=== PATIENT | female | born 1955 | race Caucasian/White ===

== ENCOUNTER 2019-01-03 17:43 | Inpatient (IN) ==
[2019-01-03] MEDS ORDERED: Artificial Tears SOLN 15 ML BOTTLE BOTH EYES PRN (20:07)
[2019-01-03] MEDS ORDERED: Naloxone 0.4 MG/ML INJ IVP PRN (20:07)
--- NOTE | 2019-01-03 20:07 | Internal Med History&Physical ---
<Parker Renteria Rayna - Last Filed: 01/04/19 04:50> Date of Encounter: 01/04/19 Time of Encounter: 20:07 Internal Medicine - H&P: [facility] Chief complaint: shortness of breath History of present illness: Ms. Beltran is a 63 year old female with past medical history of hypertension, hyperlipidemia, type 2 diabetes, COPD, CHF, and sleep apnea. She initially presented to [facility] on 01/03/19. She arrived to that facility via EMS with complaints of shortness of breath. Of note patient was recently discharged from [facility] on 12/29/18 after admission for similar complaints. Patient reported to the [facility] providers that she started smoking again and began having increasing shortness of breath. It was reported her O2 sat was 60% on room air when EMS arrived. She received Zofran, morphine, nitroglycerin, and Lasix in route to the [facility] emergency department. It was reported that she denied any fever, chills, dizziness, lightheadedness, chest pain, abdominal pain, nausea, vomiting. She was placed on BiPAP while at [facility]. She reportedly requested not to be transferred to [facility] because they "did not treat her well". Workup at [facility] ED was significant for elevated blood glucose of 300, BNP of 425, leukocytosis of 13.1, hemoglobin of 8.7, and carbon dioxide from BMP at 41. An ABG was subsequently obtained which showed respiratory acidosis with pH of 7.24, PCO2 of 99.9, PO2 of 71, and bicarbonate of 40.9. With those results the ED provider discussed intubation with this patient. The patient agreed for elective intubation for acute on chronic respiratory failure with hypercapnia. Patient was sedated with propofol. After intubation a repeat ABG was obtained. PH of 7.3, PCO2 of 84.9, PO2 of 185, and bicarbonate of 40. On arrival at our facility the patient remains intubated and sedated on propofol. Breath sounds were reported to be significant for wheezes and rales by EMS prior to arrival. Internal Medicine - H&P: Meds Allergy/AdvReac Type Severity Reaction Status Date / Time No Known Allergies Allergy Verified 01/03/19 20:05 ROS unobtainable: due to endotracheal tube, due to mental status All Systems PM: A 10-system review of systems was performed and is negative for pertinent findings except as documented above in the HPI. - Constitutional General appearance: Present: no acute distress Exam: Constitutional: Obese appearing female in no acute distress, sedated and intubated Head: Normocephalic, atraumatic Eyes: PERRL, EOMI, conjunctiva pink, sclera anicteric Neck: trachea midline Lungs: Clear to auscultation bilaterally. Crackles appreciated in bilateral bases. Nonlabored breathing with mechanical ventilation. No wheezes or rhonchi noted. Cardiac: RRR. +s1 +s2 No murmurs, clicks, or rubs noted. GI: Abdomen soft, nontender, nondistended. Extremities: Warm, radial pulses palpable and symmetrical. No cyanosis or calf tenderness. Trace pitting edema of the left LE Neuro: Sedated and intubated. Unable to assess Skin: Warm, dry, and intact. Internal Med - H&P Results - Labs CBC & Chem 7: 01/04/19 02:21 01/04/19 02:21 - Assessment and Plan (1) Acute and chronic respiratory failure with hypercapnia Current Visit: Yes Status: Acute Assessment and plan: Likely secondary to COPD exacerbation from continued tobacco abuse Continue intubation and sedation at this time with propofol and fentanyl. GI prophylaxis with 40 mg Protonix daily. We will continue BID Symbicort as patient takes this at home Scheduled DuoNeb every 6 hours We will start systemic glucocorticoid therapy with Solu-Medrol 40 mg IV every 6 hours We will also start the patient on IV azithromycin at this time as patient was recently admitted at [facility], however suspicion for pneumonia is low as patient had not been complaining of any fever, chills, or increased sputum production. (2) COPD exacerbation Current Visit: Yes Status: Acute Assessment and plan: Likely related related to continued tobacco abuse. Plan as above (3) CHF (congestive heart failure) Current Visit: Yes Status: Chronic Assessment and plan: Suspect respiratory failure is more important due to COPD exacerbation versus CHF exacerbation. Will continue 40 mg IV Lasix daily at this time. Strict I's and O's. Qualifiers: Heart failure type: unspecified Heart failure chronicity: chronic Qualified Code(s): I50.9 - Heart failure, unspecified (4) Diabetes mellitus Current Visit: Yes Status: Chronic Assessment and plan: Patient's home regimen consists of 35 units Lantus Solostar BID and sliding scale NovoLog 3 times a day As patient is NPO, we will obtain Accu-Cheks every 6 hours, and start the patient on high-dose sliding scale every 6 hours Qualifiers: Diabetes mellitus type: type 2 Diabetes mellitus middle or intermediate school principal insulin use: with usp use Diabetes mellitus complication status: without complication Qualified Code(s): E11.9 - Type 2 diabetes mellitus without complications; Z79.4 - termite exterminator helper (current) use of insulin (5) HTN (hypertension) Current Visit: Yes Status: Chronic Assessment and plan: Patient takes lisinopril 5 mg daily, and metoprolol tartrate 25 mg daily. We will hold these medications at this time and continue to monitor. Qualifiers: Hypertension type: unspecified Qualified Code(s): I10 - Essential (primary) hypertension (6) HLD (hyperlipidemia) Current Visit: Yes Status: Chronic Assessment and plan: Hold home atorvastatin 40 mg at this time as patient is NPO and intubated Qualifiers: Hyperlipidemia type: unspecified Qualified Code(s): E78.5 - Hyperlipidemia, unspecified (7) DVT prophylaxis Current Visit: Yes Status: Acute Assessment and plan: EPCDs (8) Sleep apnea Current Visit: Yes Status: Chronic Qualifiers: Sleep apnea type: unspecified type Qualified Code(s): G47.30 - Sleep apnea, unspecified - Time Spent With Patient Total time spent is greater than 50% in coordination of care (as documented) at patient's floor/unit and/or counseling patient: <Milton Nesbitt - Last Filed: 01/04/19 08:02> Date of Encounter: 01/03/19 Internal Medicine - H&P: HPI History of present illness: Ms. Beltran is a 63 year old female All Systems PM: A 10-system review of systems was performed and is negative for pertinent findings except as documented above in the HPI. - Constitutional Vitals: Temp Pulse Resp BP Pulse Ox 97.6 F 91 14 103/59 97 01/04/19 03:00 01/04/19 07:00 01/04/19 07:30 01/04/19 07:00 01/04/19 07:30 Internal Med - H&P Results - Labs CBC & Chem 7: 01/04/19 02:21 01/04/19 02:21 Labs: Short CBC 01/03/19 01/04/19 Range/Units 20:39 02:21 WBC 11.8 H 12.2 H (4.3-11.1) K/mcL Hgb 8.8 L 8.2 L (11.5-15.4) g/dL Hct 32.2 L 29.7 L (35.3-44.9) % Plt Count 361 339 (140-400) K/mcL Neutrophils # 11.2 H 10.9 H (1.6-8.9) K/mcL BMP 01/03/19 01/04/19 20:39 02:21 Sodium 139 138 Potassium 4.9 3.7 Chloride 94 L 94 L Carbon Dioxide 37 H 37 H BUN 22 21 Creatinine 0.78 0.60 Glucose 338 H 246 H Calcium 9.1 8.8 Liver Function 01/04/19 Range/Units 02:21 Total Bilirubin 0.5 (0.3-1.0) mg/dL AST 15 (13-39) Units/L ALT 21 (7-52) Units/L Alkaline Phosphatase 96 (34-104) Units/L Albumin 3.3 L (3.5-5.7) g/dL - ABG Interpretation ABG results: 01/03/19 01/04/19 20:57 04:53 ABG pH 7.47 H 7.58 H ABG pCO2 55 H 42 ABG pO2 64 L 55 L ABG HCO3 40 H 40 H ABG Total CO2 42 H 41 H ABG O2 Saturation 93 L 92 L ABG Base Excess 14 H 16 H - Impressions ITS Impressions Chest X-Ray 01/04/19 07:39 IMPRESSION: 1. Dense retrocardiac opacity with moderate pleural effusion may represent infection or atelectasis. 2. Ground-glass and reticular opacities throughout the lungs suggestive of pulmonary edema. Atypical infection could have a similar appearance. 3. Cardiomegaly. 4. Lines and tubes appear in appropriate position. D/ / Sima Pinon MD / Sima Pinon MD Interpreting Provider: Sima Pinon MD - Assessment and Plan (1) Acute and chronic respiratory failure with hypercapnia Current Visit: Yes Status: Acute (2) COPD exacerbation Current Visit: Yes Status: Acute (3) CHF (congestive heart failure) Current Visit: Yes Status: Chronic Qualifiers: Heart failure type: unspecified Heart failure chronicity: chronic Qualified Code(s): I50.9 - Heart failure, unspecified (4) DVT prophylaxis Current Visit: Yes Status: Acute (5) HTN (hypertension) Current Visit: Yes Status: Chronic Qualifiers: Hypertension type: unspecified Qualified Code(s): I10 - Essential (primary) hypertension (6) HLD (hyperlipidemia) Current Visit: Yes Status: Chronic Qualifiers: Hyperlipidemia type: unspecified Qualified Code(s): E78.5 - Hyperlipidemia, unspecified (7) Diabetes mellitus Current Visit: Yes Status: Chronic Qualifiers: Diabetes mellitus type: type 2 Diabetes mellitus usp insulin use: with middle or intermediate school principal use Diabetes mellitus complication status: without complication Qualified Code(s): E11.9 - Type 2 diabetes mellitus without complications; Z79.4 - termite exterminator helper (current) use of insulin (8) Sleep apnea Current Visit: Yes Status: Chronic Qualifiers: Sleep apnea type: unspecified type Qualified Code(s): G47.30 - Sleep apnea, unspecified - Time Spent With Patient Total time spent is greater than 50% in coordination of care (as documented) at patient's floor/unit and/or counseling patient: - Attending Attestation I saw and evaluated the patient. I reviewed the residents note, performed my own physical examination and agree with findings and plan as documented in the residents note. Patient seen and examined on 01/03/19. Patient presented initially to [facility] ER with shortness of breath. She is a chronic smoker. She was intubated and transferred here for further management. Will will continue ICU cares, continue vent. She also has xarelto on her medication list, however review of her documentation she may have developed a bleed while on this medicine. Unclear if she is still on it or not. We will hold it for now, SCDs for DVT prophylaxis. Continue to monitor.
[2019-01-03] MEDS ORDERED: D5% in Water 1,000 ML IVC PRN (20:24)
[2019-01-03] MEDS ORDERED: Dextrose Gel 15 GM/37.5 ML TUBE PO PRN ×2 (20:24)
[2019-01-03] MEDS: FentaNYL (PF) 1,000 MCG in 0.9 % Sodium Chloride 80 ML IVC SCH (20:46)
[2019-01-03 20:51] LABS: Hemoglobin 8.8 g/dL (11.5-15.4); Mean Platelet Volume 10.6 fL (9.4-12.4); Monocytes % 1.2 %; Nucleated Red Blood Cells 0.2 /100 WBC (0); Red Cell Distribution Width 18.6 % (11.5-14.5)
[2019-01-03 20:53] LABS: Basophils % 0.1 %; Eosinophils % 0.1 %; Hematocrit 32.2 % (35.3-44.9); Immature Granulocytes % 0.4 % (0-4); Lymphocytes # 0.4 K/mcL (0.6-4.6); Lymphocytes % 3.2 %; Mean Corpuscular HGB Conc 27.3 g/dL (31.6-35.5); Mean Corpuscular Hemoglobin 24.9 pg (28.0-33.3); Mean Corpuscular Volume 91.2 fL (83.0-100.0); Monocytes # 0.1 K/mcL (0.0-1.3); Neutrophils # 11.2 K/mcL (1.6-8.9); Platelet Count 361 K/mcL (140-400); Red Blood Count 3.53 M/mcL (3.82-4.97); White Blood Count 11.8 K/mcL (4.3-11.1)
[2019-01-03] MEDS: Insulin LISPRO 300 UNITS/3 ML VIAL SQ SCH ×2 (20:58→23:14)
[2019-01-03] MEDS: Chlorhexidine Rinse 15 ML MOUTHWASH MM SCH (20:58)
[2019-01-03 21:04] LABS: ABG Base Excess 14 mEq/L (-2 to 3); ABG HCO3 40 mEq/L (21-27); ABG Oxygen Saturation 93 % (95-98); ABG PCO2 55 mmHg (35-45); ABG PH 7.47 pH Units (7.32-7.45); ABG PO2 64 mmHg (85-104); ABG TCO2 42 mEq/L (20-26); Blood Gas Modality AF; Blood Gas PEEP 5 cm H2O; Blood Gas VT 500 cc
[2019-01-03 21:12] LABS: BUN/Creatinine Ratio 28 (6-26); Blood Urea Nitrogen 22 mg/dL (8-23); Calcium 9.1 mg/dL (8.6-10.3); Carbon Dioxide 37 mEq/L (23-29); Chloride 94 mEq/L (98-107); Glucose 338 mg/dL (70-105); Osmolality,Calculated 305 (280-300); Potassium 4.9 mEq/L (3.5-5.1); Sodium 139 mEq/L (136-145); eGFR For African Americans > 60 (> 60); eGFR For Non-African Americans > 60 (> 60)
[2019-01-03 21:13] LABS: Platelet Estimate Normal (Normal)
[2019-01-03 21:14] LABS: Anisocytosis 1+ (Not Present); Hypochromasia Present (Not Present)
[2019-01-03] MEDS: Ipratropium/Albuterol Neb 3 ML IH SCH (22:16)
[2019-01-03] MEDS: Budesonide/Formoterol 160/4.5 1 PUFF INH IH SCH (22:16)
[2019-01-03] MEDS: Artificial Tears SOLN 15 ML BOTTLE BOTH EYES SCH (23:14)
[2019-01-04] MEDS: MethylPREDNISolone 40 MG/ML VIAL IVP SCH ×5 (00:20→23:13)
[2019-01-04] MEDS: Azithromycin 500 MG in D5% in Water 250 ML IVPB SCH ×2 (00:20→19:35)
[2019-01-04] MEDS: FentaNYL (PF) 1,000 MCG in 0.9 % Sodium Chloride 80 ML IVC SCH ×3 (00:20→14:40)
[2019-01-04 02:40] LABS: Basophils % 0.1 %; Hemoglobin 8.2 g/dL (11.5-15.4); Immature Granulocytes % 0.4 % (0-4); Red Cell Distribution Width 18.4 % (11.5-14.5)
[2019-01-04 02:41] LABS: Hematocrit 29.7 % (35.3-44.9); Lymphocytes # 0.7 K/mcL (0.6-4.6); Lymphocytes % 5.7 %; Mean Corpuscular HGB Conc 27.6 g/dL (31.6-35.5); Mean Corpuscular Hemoglobin 24.6 pg (28.0-33.3); Mean Corpuscular Volume 88.9 fL (83.0-100.0); Monocytes # 0.5 K/mcL (0.0-1.3); Monocytes % 4.4 %; Neutrophils # 10.9 K/mcL (1.6-8.9); Platelet Count 339 K/mcL (140-400); Red Blood Count 3.34 M/mcL (3.82-4.97); Segmented Neutrophils % 89.4 %; White Blood Count 12.2 K/mcL (4.3-11.1)
[2019-01-04 03:00] LABS: Alanine Aminotransferase 21 Units/L (7-52); Albumin 3.3 g/dL (3.5-5.7); Albumin/Globulin Ratio 1.1 (1.1-2.2); Alkaline Phosphatase 96 Units/L (34-104); Aspartate Amino Transferase 15 Units/L (13-39); BUN/Creatinine Ratio 35 (6-26); Bilirubin,Total 0.5 mg/dL (0.3-1.0); Blood Urea Nitrogen 21 mg/dL (8-23); Calcium 8.8 mg/dL (8.6-10.3); Carbon Dioxide 37 mEq/L (23-29); Chloride 94 mEq/L (98-107); Globulin 2.9 g/dL (2.4-3.5); Glucose 246 mg/dL (70-105); Osmolality,Calculated 297 (280-300); Potassium 3.7 mEq/L (3.5-5.1); Sodium 138 mEq/L (136-145); Total Protein 6.2 g/dL (6.4-8.9); eGFR For African Americans > 60 (> 60); eGFR For Non-African Americans > 60 (> 60)
[2019-01-04 03:06] LABS: INR 1.2; Prothrombin Time 14.1 Seconds (9.4-12.1)
[2019-01-04] MEDS: Ipratropium/Albuterol Neb 3 ML IH SCH ×4 (03:13→22:07)
[2019-01-04] MEDS: Artificial Tears SOLN 15 ML BOTTLE BOTH EYES SCH ×6 (03:18→23:13)
[2019-01-04 04:34] LABS: Anisocytosis 1+ (Not Present); Hypochromasia Present (Not Present); Microcytosis Present (Not Present); Platelet Estimate Normal (Normal)
[2019-01-04 04:57] LABS: ABG Base Excess 16 mEq/L (-2 to 3); ABG HCO3 40 mEq/L (21-27); ABG Oxygen Saturation 92 % (95-98); ABG PCO2 42 mmHg (35-45); ABG PH 7.58 pH Units (7.32-7.45); ABG PO2 55 mmHg (85-104); ABG TCO2 41 mEq/L (20-26); Blood Gas Modality AF; Blood Gas PEEP 5 cm H2O; Blood Gas VT 500 cc
[2019-01-04] MEDS: Insulin LISPRO 300 UNITS/3 ML VIAL SQ SCH ×6 (05:13→23:14)
--- NOTE | 2019-01-04 07:12 | Pulmonology Consult Note ---
<JamesSandraFuentes C - Last Filed: 01/04/19 11:12> Date of Encounter: 01/04/19 Time of Encounter: 07:12 Assessment and Plan (1) Acute and chronic respiratory failure with hypercapnia Current Visit: Yes Status: Acute Acute on chronic respiratory failure likely secondary to COPD exacerbation with possible CHF component She was hypercapnic on arrival to emergency department and was electively intubated On arrival to ICU she was started on Solu-Medrol, Symbicort, DuoNeb's, Lasix, azithromycin Sedation was initiated with propofol and fentanyl, ventilator bundle in place As of this morning ABG demonstrates metabolic alkalosis, likely secondary to overcompensation Chest x-ray this morning demonstrating pleural effusion and pulmonary edema, cardiomegaly There are no overt signs of pneumonia or other pathological lung process Repeat ABG this afternoon, continue mechanical ventilation, vent settings adjusted to allow for metabolically compensated hypercapnia Propofol change to Precedex, continue fentanyl and ventilator bundle, continue azithromycin for COPD exacerbation Anticipate spontaneous awakening trial and spontaneous breathing trial tomorrow morning if ventilatory status allows (2) COPD exacerbation Current Visit: Yes Status: Acute History of COPD with history of exacerbations requiring hospitalization She was apparently very recently hospitalized for this and went home and resumed smoking We will continue treatment with Solu-Medrol, Symbicort, DuoNeb's (3) CHF (congestive heart failure) Current Visit: Yes Status: Chronic History of congestive heart failure, echocardiogram last performed 12/22 demonstrating moderate diastolic heart failure with reduced ejection fraction of 30-35% Chest x-ray this admission indicating there is likely an element of heart failure exacerbation We will diurese intermittently with Lasix Qualifiers: Heart failure type: unspecified Heart failure chronicity: chronic Qualified Code(s): I50.9 - Heart failure, unspecified (4) Diabetes mellitus Current Visit: No Status: Chronic Accu-Cheks and sliding scale insulin correctional protocol Qualifiers: Diabetes mellitus type: type 2 Diabetes mellitus long term care phlebotomist insulin use: with long term care phlebotomist use Diabetes mellitus complication status: without complication Qualified Code(s): E11.9 - Type 2 diabetes mellitus without complications; Z79.4 - FPC (current) use of insulin (5) DVT prophylaxis Current Visit: Yes Status: Acute Subcutaneous heparin (6) Anemia Current Visit: Yes Status: Acute Patient was anemic on presentation, we do not have previous labs to determine if this is acute or chronic Mean corpuscular volume is normal red cell distribution width is elevated This likely indicates a mixed picture, will continue to monitor Qualifiers: Anemia type: unspecified type Qualified Code(s): D64.9 - Anemia, unspecified History of Present Illness Consult date: 01/03/19 Requesting physician: Parker Renteria Reason for consult: COPD Chief complaint: Shortness of breath History of present illness: Patient is 63-year-old female the past medical history of hypertension, hyperlipidemia, type 2 diabetes, COPD, CHF. She was recently intubated at [facility] for acute respiratory failure secondary to COPD/CHF, was discharged on 12/29/18. Apparently she began smoking at home again and began having increased shortness of breath, she called EMS and was found to have O2 saturation of 60% on room air. She was transported to [facility] emergency department where she was placed on BiPAP. ABG at [facility] demonstrated respiratory acidosis, she was electively intubated and transferred to the [facility] intensive care unit for management. Medications and Allergies Allergy/AdvReac Type Severity Reaction Status Date / Time No Known Allergies Allergy Verified 01/03/19 20:05 ROS unobtainable: due to endotracheal tube, due to mental status All Systems: The remainder of the systems were reviewed and are negative Physical Examination Vital Signs: Vital Signs, Last 4 Hours Pulse Resp BP Pulse Ox 01/04/19 06:00 74 14 106/57 98 01/04/19 05:47 14 97/57 98 01/04/19 05:00 66 14 93/51 96 01/04/19 04:00 89 16 109/54 96 01/04/19 03:13 16 94/51 96 General appearance: no acute distress, other (Medically sedated) Eyes: nonicteric ENT: other (ET tube and OG tube present) Neck: supple Effort: other (Mechanical ventilation) Inspection: normal Auscultation: bilateral: diminished breath sounds, rales, rhonchi Cardiovascular: regular rate and rhythm Gastrointestinal: normoactive bowel sounds, soft, non-distended Integumentary: normal Extremities: no cyanosis, pink and warm, pulses normal, edema (2+ bilateral lower extremity pitting edema) Musculoskeletal: no deformities pupils equal and round (Pupils constricted but equal and round), other (Medically sedated) Ventilator Settings Ventilator Settings: Ventilator Settings, Last 8 Hours Ventilator Tidal Volume 500 Setting Ventilator Tidal Volume 500 Setting Ventilator Tidal Volume 500 Setting Ventilator Tidal Volume 500 Setting Ventilator Tidal Volume 500 Setting Ventilator Tidal Volume 500 Setting Ventilator Tidal Volume 500 Setting Ventilator Tidal Volume 500 Setting Ventilator Tidal Volume 500 Setting Ventilator Tidal Volume 500 Setting Ventilator Tidal Volume 500 Setting Ventilator Tidal Volume 500 Setting Ventilator Respiratory Rate 14 Setting Ventilator Respiratory Rate 14 Setting Ventilator Respiratory Rate 14 Setting Ventilator Respiratory Rate 14 Setting Ventilator Respiratory Rate 16 Setting Ventilator Respiratory Rate 16 Setting Ventilator Respiratory Rate 16 Setting Ventilator Respiratory Rate 16 Setting Ventilator Respiratory Rate 16 Setting Ventilator Respiratory Rate 16 Setting Ventilator Respiratory Rate 16 Setting Ventilator Respiratory Rate 16 Setting Ventilator Respiratory Rate 16 Setting Actual Respiratory Rate 14 Actual Respiratory Rate 14 Actual Respiratory Rate 14 Actual Respiratory Rate 16 Actual Respiratory Rate 16 Actual Respiratory Rate 16 Actual Respiratory Rate 16 Actual Respiratory Rate 16 Actual Respiratory Rate 16 Actual Respiratory Rate 16 Actual Respiratory Rate 16 Positive End Expiratory 5 Pressure Positive End Expiratory 5 Pressure Positive End Expiratory 5 Pressure Positive End Expiratory 5 Pressure Positive End Expiratory 5 Pressure Positive End Expiratory 5 Pressure Positive End Expiratory 5 Pressure Positive End Expiratory 5 Pressure Positive End Expiratory 5 Pressure Positive End Expiratory 5 Pressure Positive End Expiratory 5 Pressure Positive End Expiratory 5 Pressure Peak Inspiratory Airway 26 Pressure Peak Inspiratory Airway 26 Pressure Peak Inspiratory Airway 24 Pressure Peak Inspiratory Airway 28 Pressure Peak Inspiratory Airway 28 Pressure Peak Inspiratory Airway 31 Pressure Peak Inspiratory Airway 31 Pressure Peak Inspiratory Airway 31 Pressure Peak Inspiratory Airway 31 Pressure Peak Inspiratory Airway 27 Pressure Peak Inspiratory Airway 27 Pressure Results - Laboratory Findings CBC and BMP: 01/04/19 02:21 01/04/19 02:21 ABG ABG pH 7.58 pH Units (7.32-7.45) H 01/04/19 04:53 ABG pCO2 42 mmHg (35-45) 01/04/19 04:53 ABG pO2 55 mmHg (85-104) L 01/04/19 04:53 ABG O2 Saturation 92 % (95-98) L 01/04/19 04:53 PT/INR, D-dimer PT 14.1 Seconds (9.4-12.1) H 01/04/19 02:21 Abnormal lab findings: Abnormal lab results WBC 12.2 K/mcL (4.3-11.1) H 01/04/19 02:21 RBC 3.34 M/mcL (3.82-4.97) L 01/04/19 02:21 Hgb 8.2 g/dL (11.5-15.4) L 01/04/19 02:21 Hct 29.7 % (35.3-44.9) L 01/04/19 02:21 MCH 24.6 pg (28.0-33.3) L 01/04/19 02:21 MCHC 27.6 g/dL (31.6-35.5) L 01/04/19 02:21 RDW 18.4 % (11.5-14.5) H 01/04/19 02:21 10.9 K/mcL (1.6-8.9) H 01/04/19 02:21 0.4 K/mcL (0.6-4.6) L 01/03/19 20:39 Nucleated RBCs/100 WBC 0.2 /100 WBC (0) H 01/03/19 20:39 Present (Not Present) A 01/04/19 02:21 1+ (Not Present) A 01/04/19 02:21 Present (Not Present) A 01/04/19 02:21 PT 14.1 Seconds (9.4-12.1) H 01/04/19 02:21 ABG pH 7.58 pH Units (7.32-7.45) H 01/04/19 04:53 ABG pCO2 55 mmHg (35-45) H 01/03/19 20:57 ABG pO2 55 mmHg (85-104) L 01/04/19 04:53 ABG HCO3 40 mEq/L (21-27) H 01/04/19 04:53 ABG Total CO2 41 mEq/L (20-26) H 01/04/19 04:53 ABG O2 Saturation 92 % (95-98) L 01/04/19 04:53 ABG Base Excess 16 mEq/L (-2 to 3) H 01/04/19 04:53 Chloride 94 mEq/L (98-107) L 01/04/19 02:21 Carbon Dioxide 37 mEq/L (23-29) H 01/04/19 02:21 35 (6-26) H 01/04/19 02:21 Glucose 246 mg/dL (70-105) H 01/04/19 02:21 POC Glucose 258 mg/dL (70-99) H 01/04/19 05:13 305 (280-300) H 01/03/19 20:39 B-Natriuretic Peptide 322 pg/mL (Less than 100) H 01/03/19 20:39 6.2 g/dL (6.4-8.9) L 01/04/19 02:21 3.3 g/dL (3.5-5.7) L 01/04/19 02:21 - Microbiology Findings Microbiology Findings: Microbiology, Last 48 Hours 01/04/19 02:21 Blood Culture - Preliminary Peripheral Venipuncture Culture is incubating and being continuously monitored for growth. Final report to follow. 01/04/19 02:21 Blood Culture - Preliminary Peripheral Venipuncture Culture is incubating and being continuously monitored for growth. Final report to follow. - Clinical Findings Intake & Output: Intake & Output 01/03/19 01/03/19 01/04/19 15:59 23:59 07:59 Intake Total 117.0 / 117.0 533 / 533 Output Total 350 / 350 250 / 250 Balance -233.0 / -233.0 283 / 283 Weight 132.4 kg 131.7 kg Consult Discharge Plan - Plan Referrals: NONE,PCP [Primary Care Provider] - <Shamar Celis - Last Filed: 01/04/19 16:21> Date of Encounter: 01/04/19 All Systems: The remainder of the systems were reviewed and are negative Physical Examination Vital Signs: Vital Signs, Last 4 Hours Pulse Resp BP Pulse Ox 01/04/19 15:34 12 90/63 95 01/04/19 14:00 65 12 87/68 95 01/04/19 13:00 82 12 106/70 94 Ventilator Settings Ventilator Settings: Ventilator Settings, Last 8 Hours Ventilator Tidal Volume 440 Setting Ventilator Tidal Volume 440 Setting Ventilator Tidal Volume 440 Setting Ventilator Tidal Volume 440 Setting Ventilator Tidal Volume 440 Setting Ventilator Tidal Volume 440 Setting Ventilator Tidal Volume 440 Setting Ventilator Tidal Volume 440 Setting Ventilator Tidal Volume 440 Setting Ventilator Tidal Volume 440 Setting Ventilator Respiratory Rate 12 Setting Ventilator Respiratory Rate 12 Setting Ventilator Respiratory Rate 12 Setting Ventilator Respiratory Rate 12 Setting Ventilator Respiratory Rate 12 Setting Ventilator Respiratory Rate 10 Setting Ventilator Respiratory Rate 10 Setting Ventilator Respiratory Rate 10 Setting Ventilator Respiratory Rate 14 Setting Ventilator Respiratory Rate 10 Setting Ventilator Respiratory Rate 10 Setting Actual Respiratory Rate 12 Actual Respiratory Rate 12 Actual Respiratory Rate 12 Actual Respiratory Rate 12 Actual Respiratory Rate 22 Actual Respiratory Rate 10 Actual Respiratory Rate 14 Actual Respiratory Rate 10 Actual Respiratory Rate 10 Positive End Expiratory 5 Pressure Positive End Expiratory 5 Pressure Positive End Expiratory 5 Pressure Positive End Expiratory 5 Pressure Positive End Expiratory 5 Pressure Positive End Expiratory 5 Pressure Positive End Expiratory 5 Pressure Positive End Expiratory 5 Pressure Positive End Expiratory 5 Pressure Positive End Expiratory 5 Pressure Peak Inspiratory Airway 39 Pressure Peak Inspiratory Airway 39 Pressure Peak Inspiratory Airway 42 Pressure Peak Inspiratory Airway 38 Pressure Peak Inspiratory Airway 29 Pressure Peak Inspiratory Airway 34 Pressure Peak Inspiratory Airway 33 Pressure Peak Inspiratory Airway 28 Pressure Peak Inspiratory Airway 24 Pressure Results - Laboratory Findings CBC and BMP: 01/04/19 02:21 01/04/19 02:21 ABG ABG pH 7.34 pH Units (7.32-7.45) 01/04/19 12:46 ABG pCO2 77 mmHg (35-45) H* 01/04/19 12:46 ABG pO2 69 mmHg (85-104) L 01/04/19 12:46 ABG O2 Saturation 91 % (95-98) L 01/04/19 12:46 PT/INR, D-dimer PT 14.1 Seconds (9.4-12.1) H 01/04/19 02:21 Abnormal lab findings: Abnormal lab results WBC 12.2 K/mcL (4.3-11.1) H 01/04/19 02:21 RBC 3.34 M/mcL (3.82-4.97) L 01/04/19 02:21 Hgb 8.2 g/dL (11.5-15.4) L 01/04/19 02:21 Hct 29.7 % (35.3-44.9) L 01/04/19 02:21 MCH 24.6 pg (28.0-33.3) L 01/04/19 02:21 MCHC 27.6 g/dL (31.6-35.5) L 01/04/19 02:21 RDW 18.4 % (11.5-14.5) H 01/04/19 02:21 10.9 K/mcL (1.6-8.9) H 01/04/19 02:21 0.4 K/mcL (0.6-4.6) L 01/03/19 20:39 Nucleated RBCs/100 WBC 0.2 /100 WBC (0) H 01/03/19 20:39 Present (Not Present) A 01/04/19 02:21 1+ (Not Present) A 01/04/19 02:21 Present (Not Present) A 01/04/19 02:21 PT 14.1 Seconds (9.4-12.1) H 01/04/19 02:21 ABG pH 7.58 pH Units (7.32-7.45) H 01/04/19 04:53 ABG pCO2 77 mmHg (35-45) H* 01/04/19 12:46 ABG pO2 69 mmHg (85-104) L 01/04/19 12:46 ABG HCO3 41 mEq/L (21-27) H 01/04/19 12:46 ABG Total CO2 44 mEq/L (20-26) H 01/04/19 12:46 ABG O2 Saturation 91 % (95-98) L 01/04/19 12:46 ABG Base Excess 13 mEq/L (-2 to 3) H 01/04/19 12:46 Chloride 94 mEq/L (98-107) L 01/04/19 02:21 Carbon Dioxide 37 mEq/L (23-29) H 01/04/19 02:21 35 (6-26) H 01/04/19 02:21 Glucose 246 mg/dL (70-105) H 01/04/19 02:21 POC Glucose 253 mg/dL (70-99) H 01/04/19 11:45 305 (280-300) H 01/03/19 20:39 B-Natriuretic Peptide 322 pg/mL (Less than 100) H 01/03/19 20:39 6.2 g/dL (6.4-8.9) L 01/04/19 02:21 3.3 g/dL (3.5-5.7) L 01/04/19 02:21 - Microbiology Findings Microbiology Findings: Microbiology, Last 48 Hours 01/04/19 11:50 Urine Culture - Preliminary Urine,[place] Culture is incubating. 01/04/19 11:50 Legionella Antigen - Final Urine,[place] Streptococcus pneumoniae Antigen (M - Final 01/04/19 02:21 Blood Culture - Preliminary Peripheral Venipuncture Culture is incubating and being continuously monitored for growth. Final report to follow. 01/04/19 02:21 Blood Culture - Preliminary Peripheral Venipuncture Culture is incubating and being continuously monitored for growth. Final report to follow. - Clinical Findings Intake & Output: Intake & Output 01/04/19 01/04/19 01/04/19 07:59 15:59 23:59 Intake Total 733 / 933 200 / 933 Output Total 250 / 1425 1175 / 1425 Balance 483 / -492 -975 / -492 Weight 131.7 kg - Attending Attestation I examined this patient and my medical decision-making was reviewed with the Resident Physician. I agree with the documented findings, disposition and treatment plan as described except to the extent set forth below. We independently had [id number] contact with the patient I spent 32min of Critical Care time with this patient. It involved decision making of high complexity to assess, manipulate, and support vital organ system failure and/or to prevent further life threatening deterioration of the patient's condition. The time involved in the performance of separately reportable procedures was not counted toward critical care time. Patient seen and examined at bedside Labs, radiology, chart personally reviewed. Management was reviewed during multidisciplinary critical care rounds. SOURCE INSPECTOR: Patient has encephalopathy secondary to metabolic derangements and sedation plan to perform daily sedation holiday goal [place] would be about 2-3 we will try to switch from propofol to Precedex continue low-dose narcotic as tolerated Pulm: Acute on chronic hypoxic hypercapnic respiratory failure secondary to COPD exacerbation no significant auto PEEP on vent today acceptable peak and plateau pressures unfortunately patient has been over ventilated over the course of the evening and then now has subsequent alkalosis I have adjusted her vent setting by decreasing her minute ventilation to accommodate for this continue steroids for COPD exacerbation as well as bronchodilators Cards: Blood pressure monitored and is stable she has an elevated BNP for which we will check an echocardiogram to evaluate for heart failure and pulmonary hypertension GI: GI prophylaxis given while on vent Nutrition: Nothing by mouth for now Renal: Life-threatening metabolic alkalosis. Dose of Diamox tonight and will need to decrease vent settings will also tightly just potassium and chloride . Would hold off on diuresis further until this corrects UOP Monitored, Cont to Trend sCr and monitor Electrolytes. ID: No clear source of infection possibly pneumonia but this is equivocal check pro calcitonin and will broadly culturing the patient have a low threshold for initiation of broad-spectrum antibiotics as patient has had recent hospitalizati ons however at this time which is use macrolide antibiotic for COPD exacerbation Heme/Onc: DVT prophylaxis given Endo: Glucose Monitored Integ/MSK: Skin Care per routine ICU Nursing Protocol to prevent ulcers. Lines: All lines examined without evidence of infection : Dispo: Monitor in ICU for critical Illness CODE: Full.
[2019-01-04] MEDS: Furosemide 40 MG/4 ML VIAL IVP SCH (08:53)
[2019-01-04] MEDS: Pantoprazole 40 MG VIAL IVP SCH (08:53)
[2019-01-04] MEDS: Chlorhexidine Rinse 15 ML MOUTHWASH MM SCH ×2 (08:53→19:35)
[2019-01-04] MEDS: Insulin DETEMIR 100 UNIT/ML X5UNITS SQ SCH ×2 (08:54→19:35)
[2019-01-04] MEDS: Budesonide/Formoterol 160/4.5 1 PUFF INH IH SCH ×2 (09:55→22:08)
[2019-01-04] MEDS ORDERED: Dexmedetomidine HCl 400 MCG/100 ML MLS IVC ONE (10:10)
[2019-01-04] MEDS: Dexmedetomidine HCl 400 MCG/100 ML MLS IVC SCH ×3 (10:33→22:11)
[2019-01-04] MEDS ORDERED: Perflutren Lipid Microsphere 1.3 ML in 0.9 % Sodium Chloride 8.7 ML IVP ONE (11:08)
[2019-01-04] MEDS ORDERED: Perflutren Lipid Microsphere 2 ML VIAL ONE (11:13)
[2019-01-04] MEDS: *HR* Heparin 5,000 UNIT/ML VIAL SQ SCH ×2 (12:31→23:13)
[2019-01-04 12:50] LABS: ABG Base Excess 13 mEq/L (-2 to 3); ABG HCO3 41 mEq/L (21-27); ABG Oxygen Saturation 91 % (95-98); ABG PCO2 77 mmHg (35-45); ABG PH 7.34 pH Units (7.32-7.45); ABG PO2 69 mmHg (85-104); ABG TCO2 44 mEq/L (20-26); Blood Gas Modality VC; Blood Gas PEEP 5 cm H2O; Blood Gas VT 440 cc
[2019-01-05] MEDS: FentaNYL (PF) 1,000 MCG in 0.9 % Sodium Chloride 80 ML IVC SCH (01:10)
[2019-01-05] MEDS: Dexmedetomidine HCl 400 MCG/100 ML MLS IVC SCH ×6 (03:34→21:02)
[2019-01-05] MEDS: Insulin LISPRO 300 UNITS/3 ML VIAL SQ SCH ×5 (03:34→19:52)
[2019-01-05] MEDS: Artificial Tears SOLN 15 ML BOTTLE BOTH EYES SCH ×2 (03:35→08:44)
[2019-01-05] MEDS: Ipratropium/Albuterol Neb 3 ML IH SCH ×4 (03:49→21:39)
[2019-01-05 04:13] LABS: Basophils % 0.1 %; Monocytes % 5.1 %; Red Cell Distribution Width 19.9 % (11.5-14.5)
[2019-01-05 04:15] LABS: Hematocrit 34.6 % (35.3-44.9); Hemoglobin 9.4 g/dL (11.5-15.4); Immature Granulocytes % 0.5 % (0-4); Lymphocytes # 0.5 K/mcL (0.6-4.6); Mean Corpuscular HGB Conc 27.2 g/dL (31.6-35.5); Mean Corpuscular Hemoglobin 24.7 pg (28.0-33.3); Mean Corpuscular Volume 91.1 fL (83.0-100.0); Mean Platelet Volume 10.7 fL (9.4-12.4); Monocytes # 0.9 K/mcL (0.0-1.3); Neutrophils # 15.9 K/mcL (1.6-8.9); Platelet Count 341 K/mcL (140-400); Segmented Neutrophils % 91.3 %; White Blood Count 17.4 K/mcL (4.3-11.1)
[2019-01-05 04:34] LABS: BUN/Creatinine Ratio 32 (6-26); Blood Urea Nitrogen 24 mg/dL (8-23); Calcium 9.4 mg/dL (8.6-10.3); Carbon Dioxide 35 mEq/L (23-29); Chloride 93 mEq/L (98-107); Glucose 188 mg/dL (70-105); Osmolality,Calculated 301 (280-300); Potassium 3.8 mEq/L (3.5-5.1); Sodium 141 mEq/L (136-145); eGFR For African Americans > 60 (> 60); eGFR For Non-African Americans > 60 (> 60)
[2019-01-05 04:49] LABS: ABG Base Excess 14 mEq/L (-2 to 3); ABG HCO3 42 mEq/L (21-27); ABG Oxygen Saturation 88 % (95-98); ABG PCO2 72 mmHg (35-45); ABG PH 7.37 pH Units (7.32-7.45); ABG PO2 60 mmHg (85-104); ABG TCO2 44 mEq/L (20-26); Blood Gas Modality AF; Blood Gas PEEP 5 cm H2O; Blood Gas VT 440 cc
[2019-01-05 05:04] LABS: Platelet Estimate Normal (Normal)
[2019-01-05 05:06] LABS: Anisocytosis 1+ (Not Present); Hypochromasia Present (Not Present)
[2019-01-05 05:08] LABS: Poikilocytosis 1+ (Not Present)
[2019-01-05] MEDS: *HR* Heparin 5,000 UNIT/ML VIAL SQ SCH ×3 (05:08→21:02)
[2019-01-05] MEDS: MethylPREDNISolone 40 MG/ML VIAL IVP SCH ×2 (05:08→18:52)
[2019-01-05] MEDS: Pantoprazole 40 MG VIAL IVP SCH (08:34)
[2019-01-05] MEDS: Chlorhexidine Rinse 15 ML MOUTHWASH MM SCH (08:34)
[2019-01-05] MEDS: Furosemide 40 MG/4 ML VIAL IVP SCH (08:44)
[2019-01-05] MEDS: Insulin DETEMIR 100 UNIT/ML X5UNITS SQ SCH (08:45)
--- NOTE | 2019-01-05 08:56 | Pulmonology Progress Note ---
<JamesSandraFuentes C - Last Filed: 01/05/19 10:28> Date of Encounter: 01/05/19 Time of Encounter: 08:56 Assessment and Plan (1) Acute and chronic respiratory failure with hypercapnia Current Visit: Yes Status: Acute Acute on chronic respiratory failure likely secondary to COPD exacerbation with possible CHF component She was hypercapnic on arrival to emergency department and was electively intubated On arrival to ICU she was started on Solu-Medrol, Symbicort, DuoNeb's, Lasix, azithromycin Sedation was initiated with propofol and fentanyl, ventilator bundle in place As of this morning ABG demonstrates compensated respiratory acidosis De-escalate Solu-Medrol to 40 mg IV every 12 hours Patient successfully extubated to BiPAP this morning Continue breathing treatments, azithromycin Continue to monitor in the ICU today, anticipate transfer out of ICU tomorrow (2) COPD exacerbation Current Visit: Yes Status: Acute Treatment as above I discussed smoking cessation with the patient, she seems motivated to quit (3) CHF (congestive heart failure) Current Visit: Yes Status: Chronic History of congestive heart failure, echocardiogram last performed 12/22 demonstrating moderate diastolic heart failure with reduced ejection fraction of 30-35% Chest x-ray this admission indicating there is likely an element of heart failure exacerbation We will diurese intermittently with Lasix Qualifiers: Heart failure type: unspecified Heart failure chronicity: chronic Qualified Code(s): I50.9 - Heart failure, unspecified (4) Diabetes mellitus Current Visit: No Status: Chronic Accu-Cheks, daily Levemir, sliding scale insulin correctional protocol Qualifiers: Diabetes mellitus type: type 2 Diabetes mellitus terminal gauger insulin use: with terminal gauger use Diabetes mellitus complication status: without complication Qualified Code(s): E11.9 - Type 2 diabetes mellitus without complications; Z79.4 - long term acute care registered nurse (current) use of insulin (5) DVT prophylaxis Current Visit: Yes Status: Acute Subcutaneous heparin (6) Anemia Current Visit: Yes Status: Acute Patient was anemic on presentation, we do not have previous labs to determine if this is acute or chronic Mean corpuscular volume is normal red cell distribution width is elevated This likely indicates a mixed picture, will continue to monitor Repeat hemoglobin this morning 9.4 from 8.2 yesterday, stable Qualifiers: Anemia type: unspecified type Qualified Code(s): D64.9 - Anemia, unspecified Subjective Principal diagnosis: Acute respiratory failure secondary to COPD exacerbation Interval history: No acute events overnight. Patient was successfully extubated to BiPAP this morning and is doing well. Objective PUL Vital signs: Last Vital Signs Temp 97.5 F L 01/05/19 08:22 Pulse 107 01/05/19 08:00 Resp 23 01/05/19 08:00 BP 132/72 01/05/19 08:00 Pulse Ox 94 01/05/19 08:00 General appearance: no acute distress, alert Eyes: nonicteric ENT: oropharynx moist Neck: supple Effort: normal Auscultation: bilateral: clear, diminished breath sounds Cardiovascular: other (Tachycardic rate and regular rhythm) Gastrointestinal: absent bowel sounds, soft, non-tender, non-distended Integumentary: normal Extremities: no cyanosis, pink and warm, edema Musculoskeletal: no deformities non-focal exam, pupils equal and round Ventilator Settings Ventilator Settings: Ventilator Settings, Last 8 Hours Ventilator Tidal Volume 440 Setting Ventilator Tidal Volume 440 Setting Ventilator Tidal Volume 440 Setting Ventilator Tidal Volume 440 Setting Ventilator Tidal Volume 440 Setting Ventilator Tidal Volume 440 Setting Ventilator Tidal Volume 440 Setting Ventilator Tidal Volume 440 Setting Ventilator Tidal Volume 440 Setting Ventilator Tidal Volume 440 Setting Ventilator Respiratory Rate 12 Setting Ventilator Respiratory Rate 12 Setting Ventilator Respiratory Rate 12 Setting Ventilator Respiratory Rate 12 Setting Ventilator Respiratory Rate 12 Setting Ventilator Respiratory Rate 12 Setting Ventilator Respiratory Rate 12 Setting Ventilator Respiratory Rate 12 Setting Ventilator Respiratory Rate 12 Setting Ventilator Respiratory Rate 12 Setting Actual Respiratory Rate 22 Actual Respiratory Rate 25 Actual Respiratory Rate 16 Actual Respiratory Rate 16 Actual Respiratory Rate 18 Actual Respiratory Rate 14 Actual Respiratory Rate 16 Actual Respiratory Rate 14 Actual Respiratory Rate 14 Actual Respiratory Rate 14 Actual Respiratory Rate 15 Positive End Expiratory 5 Pressure Positive End Expiratory 5 Pressure Positive End Expiratory 5 Pressure Positive End Expiratory 5 Pressure Positive End Expiratory 5 Pressure Positive End Expiratory 5 Pressure Positive End Expiratory 5 Pressure Positive End Expiratory 5 Pressure Positive End Expiratory 5 Pressure Positive End Expiratory 5 Pressure Positive End Expiratory 5 Pressure Positive End Expiratory 5 Pressure Peak Inspiratory Airway 40 Pressure Peak Inspiratory Airway 39 Pressure Peak Inspiratory Airway 21 Pressure Peak Inspiratory Airway 21 Pressure Peak Inspiratory Airway 20 Pressure Peak Inspiratory Airway 20 Pressure Peak Inspiratory Airway 18 Pressure Peak Inspiratory Airway 20 Pressure Peak Inspiratory Airway 20 Pressure Peak Inspiratory Airway 23 Pressure Peak Inspiratory Airway 23 Pressure Results - Laboratory Findings CBC and BMP: 01/05/19 03:55 01/05/19 03:55 ABG ABG pH 7.37 pH Units (7.32-7.45) 01/05/19 04:45 ABG pCO2 72 mmHg (35-45) H* 01/05/19 04:45 ABG pO2 60 mmHg (85-104) L 01/05/19 04:45 ABG O2 Saturation 88 % (95-98) L 01/05/19 04:45 PT/INR, D-dimer PT 14.1 Seconds (9.4-12.1) H 01/04/19 02:21 Abnormal lab findings: Abnormal lab results WBC 17.4 K/mcL (4.3-11.1) H 01/05/19 03:55 RBC 3.80 M/mcL (3.82-4.97) L 01/05/19 03:55 Hgb 9.4 g/dL (11.5-15.4) L 01/05/19 03:55 Hct 34.6 % (35.3-44.9) L 01/05/19 03:55 MCH 24.7 pg (28.0-33.3) L 01/05/19 03:55 MCHC 27.2 g/dL (31.6-35.5) L 01/05/19 03:55 RDW 19.9 % (11.5-14.5) H 01/05/19 03:55 15.9 K/mcL (1.6-8.9) H 01/05/19 03:55 0.5 K/mcL (0.6-4.6) L 01/05/19 03:55 Nucleated RBCs/100 WBC 0.2 /100 WBC (0) H 01/03/19 20:39 Present (Not Present) A 01/05/19 03:55 1+ (Not Present) A 01/05/19 03:55 1+ (Not Present) A 01/05/19 03:55 Present (Not Present) A 01/04/19 02:21 PT 14.1 Seconds (9.4-12.1) H 01/04/19 02:21 ABG pH 7.58 pH Units (7.32-7.45) H 01/04/19 04:53 ABG pCO2 72 mmHg (35-45) H* 01/05/19 04:45 ABG pO2 60 mmHg (85-104) L 01/05/19 04:45 ABG HCO3 42 mEq/L (21-27) H 01/05/19 04:45 ABG Total CO2 44 mEq/L (20-26) H 01/05/19 04:45 ABG O2 Saturation 88 % (95-98) L 01/05/19 04:45 ABG Base Excess 14 mEq/L (-2 to 3) H 01/05/19 04:45 Chloride 93 mEq/L (98-107) L 01/05/19 03:55 Carbon Dioxide 35 mEq/L (23-29) H 01/05/19 03:55 BUN 24 mg/dL (8-23) H 01/05/19 03:55 32 (6-26) H 01/05/19 03:55 Glucose 188 mg/dL (70-105) H 01/05/19 03:55 POC Glucose 191 mg/dL (70-99) H 01/04/19 23:00 301 (280-300) H 01/05/19 03:55 B-Natriuretic Peptide 322 pg/mL (Less than 100) H 01/03/19 20:39 6.2 g/dL (6.4-8.9) L 01/04/19 02:21 3.3 g/dL (3.5-5.7) L 01/04/19 02:21 - Microbiology Findings Microbiology Findings: Microbiology, Last 48 Hours 01/04/19 16:49 Sputum Culture - Preliminary Sputum 01/04/19 11:50 Urine Culture - Preliminary Urine,[place] Culture is incubating. 01/04/19 11:50 Legionella Antigen - Final Urine,[place] Streptococcus pneumoniae Antigen (M - Final 01/04/19 02:21 Blood Culture - Preliminary Peripheral Venipuncture Culture is incubating and being continuously monitored for growth. Final report to follow. 01/04/19 02:21 Blood Culture - Preliminary Peripheral Venipuncture Culture is incubating and being continuously monitored for growth. Final report to follow. - Clinical Findings Intake & Output: Intake & Output 01/04/19 01/05/19 01/05/19 23:59 07:59 15:59 Intake Total 450 / 1545 395 / 433 38 / 433 Output Total 850 / 2275 300 / 550 250 / 550 Balance -400 / -730 95 / -117 -212 / -117 Weight 132.5 kg Consult Discharge Plan - Plan Referrals: NONE,PCP [Primary Care Provider] - <Shamar Celis W - Last Filed: 01/05/19 13:15> Date of Encounter: 01/05/19 Objective PUL Vital signs: Last Vital Signs Temp 97.8 F 01/05/19 12:47 Pulse 114 01/05/19 13:01 Resp 20 01/05/19 13:01 BP 168/93 01/05/19 13:01 Pulse Ox 94 01/05/19 13:01 Ventilator Settings Ventilator Settings: Ventilator Settings, Last 8 Hours Ventilator Tidal Volume 440 Setting Ventilator Tidal Volume 440 Setting Ventilator Respiratory Rate 12 Setting Ventilator Respiratory Rate 12 Setting Actual Respiratory Rate 25 Actual Respiratory Rate 22 Actual Respiratory Rate 25 Actual Respiratory Rate 29 Actual Respiratory Rate 16 Actual Respiratory Rate 16 Positive End Expiratory 5 Pressure Positive End Expiratory 5 Pressure Positive End Expiratory 5 Pressure Positive End Expiratory 5 Pressure Positive End Expiratory 5 Pressure Positive End Expiratory 5 Pressure Peak Inspiratory Airway 33 Pressure Peak Inspiratory Airway 40 Pressure Peak Inspiratory Airway 39 Pressure Peak Inspiratory Airway 12 Pressure Peak Inspiratory Airway 21 Pressure Peak Inspiratory Airway 21 Pressure Results - Laboratory Findings CBC and BMP: 01/05/19 03:55 01/05/19 03:55 ABG ABG pH 7.37 pH Units (7.32-7.45) 01/05/19 04:45 ABG pCO2 72 mmHg (35-45) H* 01/05/19 04:45 ABG pO2 60 mmHg (85-104) L 01/05/19 04:45 ABG O2 Saturation 88 % (95-98) L 01/05/19 04:45 PT/INR, D-dimer PT 14.1 Seconds (9.4-12.1) H 01/04/19 02:21 Abnormal lab findings: Abnormal lab results WBC 17.4 K/mcL (4.3-11.1) H 01/05/19 03:55 RBC 3.80 M/mcL (3.82-4.97) L 01/05/19 03:55 Hgb 9.4 g/dL (11.5-15.4) L 01/05/19 03:55 Hct 34.6 % (35.3-44.9) L 01/05/19 03:55 MCH 24.7 pg (28.0-33.3) L 01/05/19 03:55 MCHC 27.2 g/dL (31.6-35.5) L 01/05/19 03:55 RDW 19.9 % (11.5-14.5) H 01/05/19 03:55 15.9 K/mcL (1.6-8.9) H 01/05/19 03:55 0.5 K/mcL (0.6-4.6) L 01/05/19 03:55 Nucleated RBCs/100 WBC 0.2 /100 WBC (0) H 01/03/19 20:39 Present (Not Present) A 01/05/19 03:55 1+ (Not Present) A 01/05/19 03:55 1+ (Not Present) A 01/05/19 03:55 Present (Not Present) A 01/04/19 02:21 PT 14.1 Seconds (9.4-12.1) H 01/04/19 02:21 ABG pH 7.58 pH Units (7.32-7.45) H 01/04/19 04:53 ABG pCO2 72 mmHg (35-45) H* 01/05/19 04:45 ABG pO2 60 mmHg (85-104) L 01/05/19 04:45 ABG HCO3 42 mEq/L (21-27) H 01/05/19 04:45 ABG Total CO2 44 mEq/L (20-26) H 01/05/19 04:45 ABG O2 Saturation 88 % (95-98) L 01/05/19 04:45 ABG Base Excess 14 mEq/L (-2 to 3) H 01/05/19 04:45 Chloride 93 mEq/L (98-107) L 01/05/19 03:55 Carbon Dioxide 35 mEq/L (23-29) H 01/05/19 03:55 BUN 24 mg/dL (8-23) H 01/05/19 03:55 32 (6-26) H 01/05/19 03:55 Glucose 188 mg/dL (70-105) H 01/05/19 03:55 POC Glucose 191 mg/dL (70-99) H 01/04/19 23:00 301 (280-300) H 01/05/19 03:55 B-Natriuretic Peptide 322 pg/mL (Less than 100) H 01/03/19 20:39 6.2 g/dL (6.4-8.9) L 01/04/19 02:21 3.3 g/dL (3.5-5.7) L 01/04/19 02:21 - Microbiology Findings Microbiology Findings: Microbiology, Last 48 Hours 01/04/19 11:50 Urine Culture - Preliminary Urine,[place] Gram Positive Cocci 01/04/19 16:49 Sputum Culture - Preliminary Sputum 01/04/19 11:50 Legionella Antigen - Final Urine,[place] Streptococcus pneumoniae Antigen (M - Final 01/04/19 02:21 Blood Culture - Preliminary Peripheral Venipuncture Culture is incubating and being continuously monitored for growth. Final report to follow. 01/04/19 02:21 Blood Culture - Preliminary Peripheral Venipuncture Culture is incubating and being continuously monitored for growth. Final report to follow. - Clinical Findings Intake & Output: Intake & Output 01/04/19 01/05/19 01/05/19 23:59 07:59 15:59 Intake Total 450 / 1545 395 / 433 38 / 433 Output Total 850 / 2275 300 / 2150 1850 / 2150 Balance -400 / -730 95 / -1717 -1812 / -1717 Weight 132.5 kg - Attending Attestation I examined this patient and my medical decision-making was reviewed with the Resident Physician. I agree with the documented findings, disposition and treatment plan as described except to the extent set forth below. We independently had [id number] contact with the patient Patient seen and examined at bedside Labs, radiology, chart personally reviewed. Management was reviewed during multidisciplinary critical care rounds. WINDOWS SERVER ARCHITECT: Awake and Following commands. Continue anxiolysis Pulm: Acute on chronic hypoxic hypercapnic respiratory failure secondary to COPD on vent with acceptable weaning parameters a plan for liberation the BiPAP Cards: Blood pressure monitored and stable she has history of heart failure with preserved ejection fraction we will continue gentle diuresis continue steroids and bronchodilators GI: GI prophylaxis while on vent Nutrition: Nothing by mouth for now Renal: UOP Monitored, Cont to Trend sCr and monitor Electrolytes. ID: Procalcitonin no normal no evidence of pneumonia continue macrolide for COPD exacerbation Heme/Onc: DVT prophylaxis given Endo: Glucose Monitored Integ/MSK: Skin Care per routine ICU Nursing Protocol to prevent ulcers. Lines: All lines examined without evidence of infection : Dispo: Monitor in ICU for vent management CODE: Full.
[2019-01-05] MEDS: Budesonide/Formoterol 160/4.5 1 PUFF INH IH SCH ×2 (09:25→21:40)
[2019-01-05] MEDS ORDERED: *HR* LORazepam 2 MG/ML VIAL ONE (12:07)
[2019-01-05] MEDS ORDERED: Dexmedetomidine HCl 400 MCG/100 ML MLS IVC ONE (12:07)
[2019-01-05] MEDS: *HR* LORazepam 2 MG/ML VIAL IVP PRN ×2 (12:15→18:05)
[2019-01-05] MEDS: Nicotine 21 MG PATCH.TD24 TD SCH (17:25)
[2019-01-05] MEDS: *HR* Dextrose 50 % in Water (Syg) 50 ML SYRINGE IVP PRN ×4 (19:39→23:28)
[2019-01-05] MEDS ORDERED: Insulin DETEMIR 100 UNIT/ML X5UNITS SQ SCH (21:00)
[2019-01-05] MEDS: Azithromycin 500 MG in D5% in Water 250 ML IVPB SCH (21:02)
[2019-01-05] MEDS ORDERED: D5% in 0.45% NACL 1,000 ML IVC SCH (23:45)
[2019-01-06] MEDS: Insulin LISPRO 300 UNITS/3 ML VIAL SQ SCH ×6 (00:13→19:59)
[2019-01-06] MEDS ORDERED: D5% in 0.45% NACL 1,000 ML IVC SCH (01:04)
[2019-01-06] MEDS: *HR* Dextrose 50 % in Water (Syg) 50 ML SYRINGE IVP PRN ×2 (01:07→02:31)
[2019-01-06] MEDS: Dexmedetomidine HCl 400 MCG/100 ML MLS IVC SCH ×2 (01:07→05:28)
[2019-01-06 01:42] LABS: BUN/Creatinine Ratio 35 (6-26); Blood Urea Nitrogen 22 mg/dL (8-23); Carbon Dioxide 37 mEq/L (23-29); Chloride 95 mEq/L (98-107); Glucose 70 mg/dL (70-105); Osmolality,Calculated 294 (280-300); Potassium 3.2 mEq/L (3.5-5.1); Sodium 141 mEq/L (136-145); eGFR For African Americans > 60 (> 60); eGFR For Non-African Americans > 60 (> 60)
[2019-01-06] MEDS ORDERED: D10% in Water 500 ML IVC SCH (02:45)
[2019-01-06] MEDS: D10% in Water 500 ML IVC SCH ×2 (03:11→06:43)
[2019-01-06] MEDS: Ipratropium/Albuterol Neb 3 ML IH SCH ×4 (04:21→22:24)
[2019-01-06 04:57] LABS: INR 1.1; Prothrombin Time 12.1 Seconds (9.4-12.1)
[2019-01-06 05:01] LABS: BUN/Creatinine Ratio 36 (6-26); Blood Urea Nitrogen 21 mg/dL (8-23); Calcium 8.8 mg/dL (8.6-10.3); Carbon Dioxide 35 mEq/L (23-29); Chloride 96 mEq/L (98-107); Glucose 80 mg/dL (70-105); Osmolality,Calculated 290 (280-300); Potassium 3.4 mEq/L (3.5-5.1); Sodium 139 mEq/L (136-145); eGFR For African Americans > 60 (> 60); eGFR For Non-African Americans > 60 (> 60)
[2019-01-06] MEDS: *HR* Heparin 5,000 UNIT/ML VIAL SQ SCH ×3 (05:25→19:58)
[2019-01-06] MEDS: MethylPREDNISolone 40 MG/ML VIAL IVP SCH (05:25)
--- NOTE | 2019-01-06 06:42 | Pulmonology Progress Note ---
<Josiah Queen S - Last Filed: 01/06/19 11:26> Date of Encounter: 01/06/19 Time of Encounter: 08:22 Assessment and Plan (1) Acute and chronic respiratory failure with hypercapnia Current Visit: Yes Status: Acute Acute on chronic respiratory failure likely secondary to COPD exacerbation with possible CHF component - successfully extubated to BiPAP yesterday AG from 01/05 showed pH 7.37, pCO2 72, pO2 60, HCO3 42 XR chest from admission Dense retrocardiac opacity with moderate pleural effusion may represent infection or atelectasis. Ground-glass and reticular opacities throughout the lungs suggestive of pulmonary edema. Atypical infection could have a similar appearance. Cardiomegaly ECHO from this admission showing LVEF 65%, LV diastolic dysfxn with elevated filling pressures, mild MR/TR, moderate pHTN Plan: - De-escalate Solu-Medrol to 40mg IVP to 40mg PO daily - continue BiPAP prn and hs - con't duonebs - lasix IVP daily - continue azithromycin, can transition to PO today for a total of 5-7 days - attempt to wean off precedex drip and switch to PO ativan - likely transfer to today pending clinical course today (2) Anxiety Current Visit: Yes Status: Acute Attempt to wean off precedex drip today with transition to PO ativan. (3) Obesity Current Visit: Yes Status: Acute bmi 43.1 Qualifiers: Obesity type: due to excess calories Obesity classification: adult class 3 (BMI >= 40) Serious obesity comorbidity presence: with serious comorbidity Body mass index: BMI 40.0-44.9 Qualified Code(s): E66.01 - Morbid (severe) obesity due to excess calories; Z68.41 - Body mass index (BMI) 40.0-44.9, adult (4) COPD exacerbation Current Visit: Yes Status: Acute See plan as above. (5) CHF (congestive heart failure) Current Visit: Yes Status: Chronic History of congestive heart failure ECHO from this admission showing LVEF 65% with mild LV diastolic dysfxn with elevated filling pressures XR chest did show cardiomegaly Likely contributed to a component of acute respiratory failure Continue daily IVP diuresis. Negative fluid balance at this point of -3465. Weights have been consistently around 123 kg. Qualifiers: Heart failure type: unspecified Heart failure chronicity: chronic Qualified Code(s): I50.9 - Heart failure, unspecified (6) DVT prophylaxis Current Visit: Yes Status: Acute sq heparin (7) Diabetes mellitus Current Visit: No Status: Chronic ADA diet. Accuchecks. HDSS. Qualifiers: Diabetes mellitus type: type 2 Diabetes mellitus termination clerk insulin use: with termination clerk use Diabetes mellitus complication status: without complication Qualified Code(s): E11.9 - Type 2 diabetes mellitus without complications; Z79.4 - termination clerk (current) use of insulin (8) Tobacco abuse Current Visit: No Status: Chronic counseled on cessation. nicoderm ordered. Subjective Principal diagnosis: Acute respiratory failure secondary to COPD exacerbation Interval history: Pt seen at bedside. She is very annoyed that the bed isn't large enough for her and she is quite uncomfortable. She is overall unpleased that she is in the hospital. Objective PUL Vital signs: Last Vital Signs Temp 98.4 F 01/06/19 03:00 Pulse 107 01/06/19 06:00 Resp 26 01/06/19 06:00 BP 121/69 01/06/19 06:00 Pulse Ox 97 01/06/19 06:00 General appearance: no acute distress, alert, agitated Eyes: nonicteric ENT: oropharynx moist Effort: normal Auscultation: bilateral: diminished breath sounds Cardiovascular: regular rate and rhythm Gastrointestinal: soft, non-tender, other (obese) Extremities: no cyanosis, edema Musculoskeletal: no deformities normal mental status, non-focal exam anxious Results - Laboratory Findings CBC and BMP: 01/06/19 06:28 01/06/19 04:20 ABG ABG pH 7.37 pH Units (7.32-7.45) 01/05/19 04:45 ABG pCO2 72 mmHg (35-45) H* 01/05/19 04:45 ABG pO2 60 mmHg (85-104) L 01/05/19 04:45 ABG O2 Saturation 88 % (95-98) L 01/05/19 04:45 PT/INR, D-dimer PT 12.1 Seconds (9.4-12.1) 01/06/19 04:20 Abnormal lab findings: Abnormal lab results WBC 17.4 K/mcL (4.3-11.1) H 01/05/19 03:55 RBC 3.80 M/mcL (3.82-4.97) L 01/05/19 03:55 Hgb 9.4 g/dL (11.5-15.4) L 01/05/19 03:55 Hct 34.6 % (35.3-44.9) L 01/05/19 03:55 MCH 24.7 pg (28.0-33.3) L 01/05/19 03:55 MCHC 27.2 g/dL (31.6-35.5) L 01/05/19 03:55 RDW 19.9 % (11.5-14.5) H 01/05/19 03:55 15.9 K/mcL (1.6-8.9) H 01/05/19 03:55 0.5 K/mcL (0.6-4.6) L 01/05/19 03:55 Nucleated RBCs/100 WBC 0.2 /100 WBC (0) H 01/03/19 20:39 Present (Not Present) A 01/05/19 03:55 1+ (Not Present) A 01/05/19 03:55 1+ (Not Present) A 01/05/19 03:55 Present (Not Present) A 01/04/19 02:21 PT 14.1 Seconds (9.4-12.1) H 01/04/19 02:21 ABG pH 7.58 pH Units (7.32-7.45) H 01/04/19 04:53 ABG pCO2 72 mmHg (35-45) H* 01/05/19 04:45 ABG pO2 60 mmHg (85-104) L 01/05/19 04:45 ABG HCO3 42 mEq/L (21-27) H 01/05/19 04:45 ABG Total CO2 44 mEq/L (20-26) H 01/05/19 04:45 ABG O2 Saturation 88 % (95-98) L 01/05/19 04:45 ABG Base Excess 14 mEq/L (-2 to 3) H 01/05/19 04:45 Potassium 3.4 mEq/L (3.5-5.1) L 01/06/19 04:20 Chloride 96 mEq/L (98-107) L 01/06/19 04:20 Carbon Dioxide 35 mEq/L (23-29) H 01/06/19 04:20 BUN 24 mg/dL (8-23) H 01/05/19 03:55 0.59 mg/dL (0.60-1.20) L 01/06/19 04:20 36 (6-26) H 01/06/19 04:20 Glucose 188 mg/dL (70-105) H 01/05/19 03:55 POC Glucose 59 mg/dL (70-99) L 01/06/19 01:01 301 (280-300) H 01/05/19 03:55 B-Natriuretic Peptide 322 pg/mL (Less than 100) H 01/03/19 20:39 6.2 g/dL (6.4-8.9) L 01/04/19 02:21 3.3 g/dL (3.5-5.7) L 01/04/19 02:21 - Microbiology Findings Microbiology Findings: Microbiology, Last 48 Hours 01/04/19 11:50 Urine Culture - Preliminary Urine,[place] Gram Positive Cocci 01/04/19 16:49 Sputum Culture - Preliminary Sputum 01/04/19 11:50 Legionella Antigen - Final Urine,[place] Streptococcus pneumoniae Antigen (M - Final 01/04/19 02:21 Blood Culture - Preliminary Peripheral Venipuncture Culture is incubating and being continuously monitored for growth. Final report to follow. 01/04/19 02:21 Blood Culture - Preliminary Peripheral Venipuncture Culture is incubating and being continuously monitored for growth. Final report to follow. - Clinical Findings Intake & Output: Intake & Output 01/05/19 01/05/19 01/06/19 15:59 23:59 07:59 Intake Total 138 / 986 453 / 986 1377 / 1377 Output Total 1850 / 3625 1475 / 3625 1300 / 1300 Balance -1712 / -2639 -1022 / -2639 77 / 77 Consult Discharge Plan - Plan Referrals: NONE,PCP [Primary Care Provider] - <Shamar Celis - Last Filed: 01/06/19 14:02> Date of Encounter: 01/06/19 Objective PUL Vital signs: Last Vital Signs Temp 97.7 F 01/06/19 13:01 Pulse 128 01/06/19 13:00 Resp 32 01/06/19 13:00 BP 91/47 01/06/19 13:00 Pulse Ox 97 01/06/19 13:00 Results - Laboratory Findings CBC and BMP: 01/06/19 06:28 01/06/19 04:20 ABG ABG pH 7.37 pH Units (7.32-7.45) 01/05/19 04:45 ABG pCO2 72 mmHg (35-45) H* 01/05/19 04:45 ABG pO2 60 mmHg (85-104) L 01/05/19 04:45 ABG O2 Saturation 88 % (95-98) L 01/05/19 04:45 PT/INR, D-dimer PT 12.1 Seconds (9.4-12.1) 01/06/19 04:20 Abnormal lab findings: Abnormal lab results WBC 17.4 K/mcL (4.3-11.1) H 01/05/19 03:55 RBC 3.80 M/mcL (3.82-4.97) L 01/05/19 03:55 Hgb 9.6 g/dL (11.5-15.4) L 01/06/19 06:28 Hct 33.6 % (35.3-44.9) L 01/06/19 06:28 MCH 24.6 pg (28.0-33.3) L 01/06/19 06:28 MCHC 28.6 g/dL (31.6-35.5) L 01/06/19 06:28 RDW 20.0 % (11.5-14.5) H 01/06/19 06:28 15.9 K/mcL (1.6-8.9) H 01/05/19 03:55 0.5 K/mcL (0.6-4.6) L 01/05/19 03:55 Nucleated RBCs/100 WBC 0.2 /100 WBC (0) H 01/03/19 20:39 Present (Not Present) A 01/05/19 03:55 1+ (Not Present) A 01/05/19 03:55 1+ (Not Present) A 01/05/19 03:55 Present (Not Present) A 01/04/19 02:21 PT 14.1 Seconds (9.4-12.1) H 01/04/19 02:21 ABG pH 7.58 pH Units (7.32-7.45) H 01/04/19 04:53 ABG pCO2 72 mmHg (35-45) H* 01/05/19 04:45 ABG pO2 60 mmHg (85-104) L 01/05/19 04:45 ABG HCO3 42 mEq/L (21-27) H 01/05/19 04:45 ABG Total CO2 44 mEq/L (20-26) H 01/05/19 04:45 ABG O2 Saturation 88 % (95-98) L 01/05/19 04:45 ABG Base Excess 14 mEq/L (-2 to 3) H 01/05/19 04:45 Potassium 3.4 mEq/L (3.5-5.1) L 01/06/19 04:20 Chloride 96 mEq/L (98-107) L 01/06/19 04:20 Carbon Dioxide 35 mEq/L (23-29) H 01/06/19 04:20 BUN 24 mg/dL (8-23) H 01/05/19 03:55 0.59 mg/dL (0.60-1.20) L 01/06/19 04:20 36 (6-26) H 01/06/19 04:20 Glucose 188 mg/dL (70-105) H 01/05/19 03:55 POC Glucose 59 mg/dL (70-99) L 01/06/19 01:01 301 (280-300) H 01/05/19 03:55 B-Natriuretic Peptide 322 pg/mL (Less than 100) H 01/03/19 20:39 6.2 g/dL (6.4-8.9) L 01/04/19 02:21 3.3 g/dL (3.5-5.7) L 01/04/19 02:21 - Microbiology Findings Microbiology Findings: Microbiology, Last 48 Hours 01/04/19 11:50 Urine Culture - Final Urine,[place] Vancomycin Resistant Enterococcus faecalis 01/04/19 16:49 Sputum Culture - Preliminary Sputum Gram Positive Cocci 01/04/19 11:50 Legionella Antigen - Final Urine,[place] Streptococcus pneumoniae Antigen (M - Final - Clinical Findings Intake & Output: Intake & Output 01/05/19 01/06/19 01/06/19 23:59 07:59 15:59 Intake Total 453 / 986 1457 / 1657 200 / 1657 Output Total 1475 / 3625 1300 / 4200 2900 / 4200 Balance -1022 / -2639 157 / -2543 -2700 / -2543 - Attending Attestation I examined this patient and my medical decision-making was reviewed with the Resident Physician. I agree with the documented findings, disposition and treatment plan as described except to the extent set forth below. We independently had [id number] contact with the patient Patient seen and examined at bedside Labs, radiology, chart personally reviewed. Management was reviewed during multidisciplinary critical care rounds. COMMUNICATIONS ADVISOR: Fully awake and alert no focal deficits she is anxious and responds well to benzodiazepine Pulm: Acute on chronic hypoxic hypercapnic respiratory failure secondary to COPD exacerbation she was successfully liberated from the vent yesterday and doing well on BiPAP can transition to nasal cannula as tolerated and can use BiPAP as needed for work of breathing and also when she sleeps for suspected CARO. It is crucial that the patient to stop smoking and smoking cessation counseling was given. In addition we will continue IV steroids today can transition to oral formulation tomorrow she will need two-week taper Symbicort 160/4.5 and schedule bronchodilators outpatient pulmonary follow-up to optimize COPD Cards: Blood pressure monitored and stable GI: Continue to monitor Nutrition: ADAT Renal: UOP Monitored, Cont to Trend sCr and monitor Electrolytes. ID: White count normal pro-calcitonin normal has noted that she has be RA in her urine and MRSA in sputum no clear evidence clinically patient has active infe ction this may represent colonization would continue to withhold antibiotics would have low threshold for initiation should clinical course worsen Heme/Onc: DVT prophylaxis given Endo: Glucose Monitored - hyperglycemia overnight this is resolved Integ/MSK: Skin Care per routine ICU Nursing Protocol to prevent ulcers. Lines: All lines examined without evidence of infection : Dispo: Stable for transfer to second floor telemetry CODE: Full
[2019-01-06 07:01] LABS: Eosinophils % 0.4 %; Hemoglobin 9.6 g/dL (11.5-15.4); Mean Corpuscular Hemoglobin 24.6 pg (28.0-33.3); Mean Platelet Volume 10.2 fL (9.4-12.4)
[2019-01-06 07:02] LABS: Basophils % 0.2 %; Hematocrit 33.6 % (35.3-44.9); Immature Granulocytes % 0.5 % (0-4); Lymphocytes # 1.7 K/mcL (0.6-4.6); Mean Corpuscular HGB Conc 28.6 g/dL (31.6-35.5); Mean Corpuscular Volume 86.2 fL (83.0-100.0); Monocytes # 0.9 K/mcL (0.0-1.3); Monocytes % 8.8 %; Neutrophils # 7.6 K/mcL (1.6-8.9); Platelet Count 341 K/mcL (140-400); Segmented Neutrophils % 74.1 %; White Blood Count 10.3 K/mcL (4.3-11.1)
[2019-01-06 08:04] LABS: Platelet Estimate Normal (Normal)
[2019-01-06] MEDS: Nicotine 21 MG PATCH.TD24 TD SCH (08:13)
[2019-01-06] MEDS: Furosemide 40 MG/4 ML VIAL IVP SCH (08:13)
[2019-01-06] MEDS: Pantoprazole 40 MG VIAL IVP SCH (08:13)
[2019-01-06] MEDS ORDERED: predniSONE 20 MG TABLET PO SCH (09:00)
[2019-01-06] MEDS: Budesonide/Formoterol 160/4.5 1 PUFF INH IH SCH ×2 (09:53→22:24)
[2019-01-06] MEDS: *HR* LORazepam 1 MG TABLET PO SCH ×3 (10:03→19:58)
[2019-01-06] MEDS ORDERED: Azithromycin 250 MG TABLET PO SCH (11:30)
[2019-01-06] MEDS ORDERED: *HR* Dextrose 50 % in Water (Syg) 50 ML SYRINGE IVP PRN (17:53)
[2019-01-06] MEDS ORDERED: D5% in Water 1,000 ML IVC PRN (17:53)
[2019-01-06] MEDS ORDERED: Dextrose Gel 15 GM/37.5 ML TUBE PO PRN ×2 (17:53)
[2019-01-06] MEDS ORDERED: Naloxone 0.4 MG/ML INJ IVP PRN (17:53)
[2019-01-07 02:44] LABS: Basophils % 0.1 %; Hematocrit 32.1 % (35.3-44.9); Hemoglobin 9.3 g/dL (11.5-15.4); Immature Granulocytes % 0.3 % (0-4); Lymphocytes # 0.7 K/mcL (0.6-4.6); Lymphocytes % 6.4 %; Mean Corpuscular Hemoglobin 24.9 pg (28.0-33.3); Mean Corpuscular Volume 85.8 fL (83.0-100.0); Mean Platelet Volume 11.1 fL (9.4-12.4); Monocytes # 0.9 K/mcL (0.0-1.3); Monocytes % 8.1 %; Platelet Count 332 K/mcL (140-400); Red Blood Count 3.74 M/mcL (3.82-4.97); Red Cell Distribution Width 19.9 % (11.5-14.5); Segmented Neutrophils % 85.1 %; White Blood Count 10.6 K/mcL (4.3-11.1)
[2019-01-07 02:54] LABS: BUN/Creatinine Ratio 39 (6-26); Blood Urea Nitrogen 33 mg/dL (8-23); Calcium 8.6 mg/dL (8.6-10.3); Carbon Dioxide 33 mEq/L (23-29); Chloride 96 mEq/L (98-107); Glucose 324 mg/dL (70-105); Osmolality,Calculated 306 (280-300); Potassium 3.9 mEq/L (3.5-5.1); Sodium 138 mEq/L (136-145); eGFR For African Americans > 60 (> 60); eGFR For Non-African Americans > 60 (> 60)
[2019-01-07] MEDS: Ipratropium/Albuterol Neb 3 ML IH SCH ×4 (03:13→22:52)
[2019-01-07] MEDS: Insulin LISPRO 300 UNITS/3 ML VIAL SQ SCH ×5 (04:50→17:16)
[2019-01-07] MEDS: *HR* Heparin 5,000 UNIT/ML VIAL SQ SCH (05:36)
[2019-01-07] MEDS ORDERED: Pantoprazole 40 MG VIAL IVP SCH (09:00)
[2019-01-07] MEDS ORDERED: Furosemide 40 MG/4 ML VIAL IVP SCH (09:00)
[2019-01-07] MEDS ORDERED: Azithromycin 250 MG TABLET PO SCH (09:00)
[2019-01-07] MEDS ORDERED: Aminoglycoside Consult 1 EACH MC ONE (09:31)
[2019-01-07] MEDS: predniSONE 20 MG TABLET PO SCH (09:32)
[2019-01-07] MEDS: Nicotine 21 MG PATCH.TD24 TD SCH (09:32)
[2019-01-07] MEDS: *HR* LORazepam 1 MG TABLET PO SCH ×3 (09:32→21:40)
[2019-01-07] MEDS: Insulin DETEMIR 100 UNIT/ML X5UNITS SQ SCH ×2 (09:33→21:40)
[2019-01-07] MEDS: Budesonide/Formoterol 160/4.5 1 PUFF INH IH SCH ×2 (10:58→22:52)
--- NOTE | 2019-01-07 11:44 | Internal Med Progress Note ---
Hospitalist Progress Note - Encounter Date of Encounter: 01/07/19 Time of Encounter: 11:40 - Subjective Interval History: I have seen and evaluated the patient at bedside. patient reports improvement in her breathing, denies chest pain, nausea or vomiting. denies urinary symptoms. - Exam Vitals: Temp Pulse Resp BP Pulse Ox 97.7 F 85 21 103/53 98 01/07/19 07:57 01/07/19 07:57 01/07/19 10:58 01/07/19 07:57 01/07/19 10:58 Exam: Vitals: Reviewed General: Alert and oriented x4. In no distress Cardiovascular: irregularly, irregular, normal S1 & S2, no rubs, murmurs or gallops. Lungs: CTA b/l, no wheezes or crackles. Abdomen: Soft, non-tender, no rigidity. Extremities: No deformity, no edema or tenderness, no joint swelling or clubbing. Neurological: Normal cognition and motor skills. Rest of the physical exam is non contributory - Assessment and Plan (1) Acute and chronic respiratory failure with hypercapnia Current Visit: Yes Status: Resolved Assessment and Plan: no wheezing on auscultation. continue bronchodilators Q4RT scheduled. On empiric antibiotics, sputum culture growing gram positive cocci presumptively identified as staph, MRSA. On prednisone 40 mg by mouth daily. Standby BiPAP On Symbicort. (2) COPD exacerbation Current Visit: Yes Status: Acute Assessment and Plan: Plan of care as above. (3) CHF (congestive heart failure) Current Visit: Yes Status: Chronic Assessment and Plan: HFpEF. Patient not on acute exacerbation. Total negative balance of 7.4 L. Continue furosemide 40 mg IV daily. (4) HTN (hypertension) Current Visit: Yes Status: Chronic Assessment and Plan: Blood pressure well-controlled on furosemide. (5) HLD (hyperlipidemia) Current Visit: Yes Status: Chronic Assessment and Plan: Atorvastatin 40 mg by mouth daily. (6) Diabetes mellitus Current Visit: No Status: Chronic Assessment and Plan: Blood [place] suboptimally controlled likely secondary to high dose of steroids. Levemir 10 units twice a day added. Continue lispro low-dose before meals. Carbs controlled diet. (7) Sleep apnea Current Visit: Yes Status: Chronic Assessment and Plan: Nocturnal BiPAP. (8) Atrial fibrillation Current Visit: Yes Status: Chronic Assessment and Plan: Patient is on propafenone 150mg/PO Q8HRs and metoprolol. Hold metoprolol due to BP running in the low side. on ribaroxaban 20mg/PO daily for secondary stroke prevention. (9) UTI (urinary tract infection) Current Visit: Yes Status: Acute Assessment and Plan: Urine cultures: Vancomycin resistant enterococcus faecalis. Possible contaminant. patient denies urinary symptoms. ID consulted. (10) Pneumonia Current Visit: Yes Status: Acute Assessment and Plan: XR/XR chest 1V portable IMPRESSION: 1. Dense retrocardiac opacity with moderate pleural effusion may represent infection or atelectasis. 2. Ground-glass and reticular opacities throughout the lungs suggestive of pulmonary edema. Atypical infection could have a similar appearance. 3. Cardiomegaly. 4. Lines and tubes appear in appropriate position. Plan: sputum culture growing staph presumptively MRSA. discontinue azithromycin started on linezolid 600mg/IV Q12HRs ID consulted for antibiotics management as patient is also growing VRE in the urine. MRSA screen ordered DVT Prophylaxis: Intermittent pneumatic compression. - Summary of Assessment and Plan Summary of Assessment and Plan: patient to remain in the hospital sputum growing staph presumptively MRSA. - Time Spent with Patient Total time spent is greater than 50% in coordination of care (as documented) at patient's floor/unit and/or counseling patient: Greater than 35 minutes (40) Plan of Care Discussed with: patient (and the nurse) Internal Medicine: Result - Labs CBC & Chem 7: 01/07/19 00:45 01/07/19 00:45 Labs: Short CBC 01/07/19 Range/Units 00:45 WBC 10.6 (4.3-11.1) K/mcL Hgb 9.3 L (11.5-15.4) g/dL Hct 32.1 L (35.3-44.9) % Plt Count 332 (140-400) K/mcL Neutrophils # 9.0 H (1.6-8.9) K/mcL BMP 01/07/19 00:45 Sodium 138 Potassium 3.9 Chloride 96 L Carbon Dioxide 33 H BUN 33 H Creatinine 0.84 Glucose 324 H Calcium 8.6 - ABG Interpretation ABG results: ABG ABG pH 7.37 pH Units (7.32-7.45) 01/05/19 04:45 ABG pCO2 72 mmHg (35-45) H* 01/05/19 04:45 ABG pO2 60 mmHg (85-104) L 01/05/19 04:45 ABG O2 Saturation 88 % (95-98) L 01/05/19 04:45 PT/INR, D-dimer PT 12.1 Seconds (9.4-12.1) 01/06/19 04:20 Consult Discharge Plan - Plan Referrals: NONE,PCP [Primary Care Provider] - (3) CHF (congestive heart failure) Qualifiers: Heart failure type: unspecified Heart failure chronicity: chronic Qualified Code(s): I50.9 - Heart failure, unspecified (4) HTN (hypertension) Qualifiers: Hypertension type: unspecified Qualified Code(s): I10 - Essential (primary) hypertension (5) HLD (hyperlipidemia) Qualifiers: Hyperlipidemia type: unspecified Qualified Code(s): E78.5 - Hyperlipidemia, unspecified (6) Diabetes mellitus Qualifiers: Diabetes mellitus type: type 2 Diabetes mellitus terminal press operator insulin use: with terminal press operator use Diabetes mellitus complication status: without complication Qualified Code(s): E11.9 - Type 2 diabetes mellitus without complications; Z79.4 - assisted (current) use of insulin (7) Sleep apnea Qualifiers: Sleep apnea type: unspecified type Qualified Code(s): G47.30 - Sleep apnea, unspecified (8) Atrial fibrillation Qualifiers: Atrial fibrillation type: unspecified Qualified Code(s): I48.91 - Unspecified atrial fibrillation (9) UTI (urinary tract infection) Qualifiers: Urinary tract infection type: site unspecified Hematuria presence: without hematuria Qualified Code(s): N39.0 - Urinary tract infection, site not specified (10) Pneumonia Qualifiers: Pneumonia type: due to methicillin-resistant Staphylococcus aureus (MRSA) Laterality: unspecified laterality Lung location: unspecified part of lung Qualified Code(s): J15.212 - Pneumonia due to Methicillin resistant Staphyloc occus aureus
[2019-01-07 12:31] LABS: Bilirubin,Urine Negative (Negative); Blood,Urine Small (Negative); Clarity,Urine Clear (Clear); Color,Urine Yellow (Yellow); Glucose,Urine (UA) Normal (Normal); Ketones,Urine Negative (Negative); Leukocyte Esterase,Urine Trace (Negative); Nitrite,Urine Negative (Negative); Protein,Urine Negative (Neg-Trace); Specific Gravity,Urine 1.017 (1.010-1.025); Urobilinogen,Urine Normal (Normal)
[2019-01-07 12:35] LABS: Bacteria,Urine Few per hpf (None-Few); Hyaline Casts,Urine None Seen per lpf (None-Few); Squamous Epithelial Cell,Urine Few per lpf (None-Few); WBC,Urine 0-3 per hpf (0-3)
[2019-01-07] MEDS: *HR* Rivaroxaban 10 MG TABLET PO SCH (17:14)
[2019-01-08 02:58] LABS: Eosinophils % 0.6 %; Hematocrit 31.9 % (35.3-44.9); Mean Platelet Volume 10.3 fL (9.4-12.4)
[2019-01-08 02:59] LABS: Basophils % 0.2 %; Eosinophils # 0.1 K/mcL (0.0-0.6); Immature Granulocytes % 0.4 % (0-4); Lymphocytes # 1.8 K/mcL (0.6-4.6); Mean Corpuscular HGB Conc 28.2 g/dL (31.6-35.5); Mean Corpuscular Hemoglobin 24.7 pg (28.0-33.3); Mean Corpuscular Volume 87.4 fL (83.0-100.0); Monocytes # 0.8 K/mcL (0.0-1.3); Monocytes % 7.4 %; Platelet Count 334 K/mcL (140-400); Red Blood Count 3.65 M/mcL (3.82-4.97); Red Cell Distribution Width 19.2 % (11.5-14.5); Segmented Neutrophils % 74.4 %; White Blood Count 10.8 K/mcL (4.3-11.1)
[2019-01-08 03:27] LABS: BUN/Creatinine Ratio 38 (6-26); Blood Urea Nitrogen 27 mg/dL (8-23); Calcium 8.8 mg/dL (8.6-10.3); Carbon Dioxide 40 mEq/L (23-29); Chloride 97 mEq/L (98-107); Glucose 229 mg/dL (70-105); Magnesium 1.9 mg/dL (1.6-2.6); Osmolality,Calculated 302 (280-300); Phosphorous 2.9 mg/dL (2.7-4.5); Potassium 3.9 mEq/L (3.5-5.1); Sodium 140 mEq/L (136-145); eGFR For African Americans > 60 (> 60); eGFR For Non-African Americans > 60 (> 60)
[2019-01-08] MEDS: Ipratropium/Albuterol Neb 3 ML IH SCH ×4 (03:38→23:25)
[2019-01-08 04:26] LABS: Hypochromasia Present (Not Present); Platelet Estimate Normal (Normal)
[2019-01-08 06:38] LABS: Estimated Average Glucose 171 mg/dl
[2019-01-08] MEDS: predniSONE 20 MG TABLET PO SCH (08:42)
[2019-01-08] MEDS: Insulin LISPRO 300 UNITS/3 ML VIAL SQ SCH ×5 (08:42→16:49)
[2019-01-08] MEDS: *HR* LORazepam 1 MG TABLET PO SCH (08:43)
[2019-01-08] MEDS: Nicotine 21 MG PATCH.TD24 TD SCH (08:43)
[2019-01-08] MEDS: Insulin DETEMIR 100 UNIT/ML X5UNITS SQ SCH ×2 (08:52→21:39)
[2019-01-08] MEDS ORDERED: Furosemide 40 MG TABLET PO SCH (09:00)
--- NOTE | 2019-01-08 10:07 | Internal Med Progress Note ---
Hospitalist Progress Note - Encounter Date of Encounter: 01/08/19 Time of Encounter: 10:05 - Subjective Interval History: I have seen and evaluated the patient at bedside. patient reports her breathing continues to improve but still feels slightly short of breath. denies chest pain, nausea or vomiting - Exam Vitals: Temp Pulse Resp BP Pulse Ox 97.7 F 85 22 111/62 100 01/08/19 07:31 01/08/19 07:31 01/08/19 07:31 01/08/19 07:31 01/08/19 07:31 Exam: Vitals: Reviewed General: Alert and oriented x4. In mild distress due to shortness of breath Cardiovascular: irregularly, irregular, normal S1 & S2, no rubs, murmurs or gallops. Lungs: CTA b/l, no wheezes or crackles. Abdomen: Soft, non-tender, no rigidity. NABS in all 4 quadrants Extremities: trace edema in the lower ext b/l. Neurological: No focal neurological deficits Rest of the physical exam is non contributory - Assessment and Plan (1) Acute and chronic respiratory failure with hypercapnia Current Visit: Yes Status: Resolved Assessment and Plan: no wheezing on auscultation. Plan bronchodilators Q4RT scheduled. On linezolid, sputum culture: MRSA continue prednisone 40 mg by mouth daily. Standby BiPAP On Symbicort. (2) COPD exacerbation Current Visit: Yes Status: Acute Assessment and Plan: Plan of care as above. (3) CHF (congestive heart failure) Current Visit: Yes Status: Chronic Assessment and Plan: HFpEF. Patient not on acute exacerbation. Total negative balance of 8.5 L. decrease furosemide to 20 mg/PO daily. on metoprolol 12.5mg/PO BID (4) HTN (hypertension) Current Visit: Yes Status: Chronic Assessment and Plan: Blood pressure well-controlled on furosemide and metoprolol. (5) HLD (hyperlipidemia) Current Visit: Yes Status: Chronic Assessment and Plan: continue Atorvastatin 40 mg by mouth daily. (6) Diabetes mellitus Current Visit: No Status: Chronic Assessment and Plan: Blood [place] suboptimally controlled. Continue Levemir 10 units twice a day, lispro 4 units before meals. Continue medium dose sliding scale before meals. (7) Sleep apnea Current Visit: Yes Status: Chronic Assessment and Plan: Nocturnal BiPAP. (8) Atrial fibrillation Current Visit: Yes Status: Chronic Assessment and Plan: Rate controlled on metoprolol and propafenone. on ribaroxaban 20mg/PO daily for secondary stroke prevention. (9) UTI (urinary tract infection) Current Visit: Yes Status: Acute Assessment and Plan: Patient reported having some UTI like symptoms about 3 weeks ago when she was discharged from [place]. denied urinary symptoms prior to this hospitalization. Urine cultures: Vancomycin resistant enterococcus faecalis. Possible contaminant. ID consulted for antibiotics management patient on linezolid 600mg/IV Q12HRs remove Barajas catheter (10) Pneumonia Current Visit: Yes Status: Acute Assessment and Plan: patient with a recent prolong hospitalization at [place]. reported being hospitalized for about 2 weeks due to copd and chf. sputum culture: MRSA patient on linezolid 600mg/IV Q12HRs ID consulted for antibiotics management as patient urine grew VRA. DVT Prophylaxis: intermittent pneumatic compression - Summary of Assessment and Plan Summary of Assessment and Plan: patient to remain in the hospital due to pneumonia. improving COPD exacerbation. Potential discharge tomorrow morning - Time Spent with Patient Total time spent is greater than 50% in coordination of care (as documented) at patient's floor/unit and/or counseling patient: Greater than 35 minutes (40) Plan of Care Discussed with: patient (and the nurse.) Internal Medicine: Result - Labs CBC & Chem 7: 01/08/19 02:45 01/08/19 02:45 Labs: Short CBC 01/08/19 Range/Units 02:45 WBC 10.8 (4.3-11.1) K/mcL Hgb 9.0 L (11.5-15.4) g/dL Hct 31.9 L (35.3-44.9) % Plt Count 334 (140-400) K/mcL Neutrophils # 8.0 (1.6-8.9) K/mcL BMP 01/08/19 02:45 Sodium 140 Potassium 3.9 Chloride 97 L Carbon Dioxide 40 H* BUN 27 H Creatinine 0.71 Glucose 229 H Calcium 8.8 Urine 01/07/19 Range/Units 12:05 Urine Color Yellow (Yellow) Urine Clarity Clear (Clear) Urine pH 6.0 (5.0-8.0) pH Units Ur Specific [place] 1.017 (1.010-1.025) Urine Protein Negative (Neg-Trace) mg/dL Urine Glucose (UA) Normal (Normal) mg/dL - ABG Interpretation ABG results: ABG ABG pH 7.37 pH Units (7.32-7.45) 01/05/19 04:45 ABG pCO2 72 mmHg (35-45) H* 01/05/19 04:45 ABG pO2 60 mmHg (85-104) L 01/05/19 04:45 ABG O2 Saturation 88 % (95-98) L 01/05/19 04:45 PT/INR, D-dimer PT 12.1 Seconds (9.4-12.1) 01/06/19 04:20 Consult Discharge Plan - Plan Referrals: NONE,PCP [Primary Care Provider] - (3) CHF (congestive heart failure) Qualifiers: Heart failure type: unspecified Heart failure chronicity: chronic Qualified Code(s): I50.9 - Heart failure, unspecified (4) HTN (hypertension) Qualifiers: Hypertension type: unspecified Qualified Code(s): I10 - Essential (primary) hypertension (5) HLD (hyperlipidemia) Qualifiers: Hyperlipidemia type: unspecified Qualified Code(s): E78.5 - Hyperlipidemia, unspecified (6) Diabetes mellitus Qualifiers: Diabetes mellitus type: type 2 Diabetes mellitus usp insulin use: with usp use Diabetes mellitus complication status: without complication Qualified Code(s): E11.9 - Type 2 diabetes mellitus without complications; Z79.4 - senior care (current) use of insulin (7) Sleep apnea Qualifiers: Sleep apnea type: unspecified type Qualified Code(s): G47.30 - Sleep apnea, unspecified (8) Atrial fibrillation Qualifiers: Atrial fibrillation type: unspecified Qualified Code(s): I48.91 - Unspecified atrial fibrillation (9) UTI (urinary tract infection) Qualifiers: Urinary tract infection type: site unspecified Hematuria presence: without hematuria Qualified Code(s): N39.0 - Urinary tract infection, site not specified (10) Pneumonia Qualifiers: Pneumonia type: due to methicillin-resistant Staphylococcus aureus (MRSA) Laterality: unspecified laterality Lung location: unspecified part of lung Qualified Code(s): J15.212 - Pneumonia due to Methicillin resistant Staphylococcus aureus
--- NOTE | 2019-01-08 10:17 | Infectious Disease Consult ---
Infectious Disease-Consult - Encounter Date/Time Date of Encounter: 01/08/19 Time of Encounter: 10:14 - Data of Consult Patient: new to practice Reason for consult: VRE urine Consult date: 01/08/19 Requesting Physician: Carol Villaseñor Primary Care Provider: PCP NONE - HPI HPI: Ms. Beltran is a 63-year-old female with past medical history of hypertension, hyperlipidemia, D diabetes mellitus, COPD, CHF, and sleep apnea. The patient was admitted to the hospital 01/03/19 for COPD exacerbation. We are consulted 01/08/19 for further workup and treatment recommendations. For VRE in the urine and MRSA in the sputum. Briefly, the patient's a 63-year-old female with a past medical history as stated above. The patient presented to [facility] emergency Department with worsening shortness of breath and was found to have a pulse ox of 60% on room air. The patient was recently discharged from [facility] on 12/29/18 where she had a prolonged hospital course. Upon arrival to the ER, the patient was noted to have leukocytosis. Her ABGs were markedly abnormal so she elected to be intubated. She was transferred here for further evaluation and treatment. Since admission here, the patient's leukocytosis has resolved. She continues to have some intermittent tachycardia. She has been afebrile. Her pro- calcitonin was normal at 0.04. A urine culture was obtained and was positive for VRE. Strep pneumococcal legionella urinary antigens were negative. Sputum culture was obtained and is positive for MRSA. Blood cultures on 01/04/19 are no growth to date 2 sets. She had a chest x-ray 01/04/19 showed a dense retrocardiac opacity with moderate pleural effusion and findings consistent with pulmonary edema versus atypical infection. She is transthoracic echocardiogram showing EF 65%. She was successfully extubated on 01/05/19. Currently, the patient is on IV Zyvox. We have been asked to evaluate and make further recommendations. During my exam today, the patient endorses a history as stated above. She states that she became more short of breath after she was discharged from [place] which she started smoking again. She denied any chest pain and states that shortness of breath was mainly on exertion. She denied any fevers, chills, or rigors. Denies congestion, earache, or sore throat. Denies nausea, vomiting, diarrhea, or constipation. Denies abdominal pain. Reports a d iscomfort with urination prior to leaving [facility]. She has a Barajas catheter that remains patent this time since she has no urinary complaints now. She reports chronic back pain that is at baseline. She reports chronic lower abdominal pain that is at baseline secondary to a hernia. She denies oral thrush or skin rashes. The patient lives at home alone. She does have a dog at home. She smokes 1 pack cigarettes per day. Denies alcohol or illicit drug use. She does not work outside the home. She denies recent travel. She denies any chronic infectious diseases. - ROS Review of Systems: All systems reviewed and no additional remarkable complaints except as stated. - Results CBC & Chem 7: 01/09/19 06:53 01/09/19 06:53 - Line Documentation Line Documentation: Barajas Catheter (Draining clear yellow urine) - Exam Vitals: Temp Pulse Resp BP Pulse Ox 97.7 F 85 22 111/62 100 01/08/19 07:31 01/08/19 07:31 01/08/19 07:31 01/08/19 07:31 01/08/19 07:31 Exam: Head: Atraumatic, normal inspection, normocephalic. Eye: EOMI, PERRLA, no scleral icterus noted. ENT: Mucous membranes moist. No odontogenic infection noted. Neck: Normal inspection, no meningismus. Respiratory: Diminished throughout. No rales, respiratory distress, rhonchi, or wheezes noted. Currently on BiPAP. Cardiovascular: Regular rate and rhythm, S1 and S2 audible. No murmurs, rubs, or gallops. GI: Soft, obese, normal bowel sounds. Tenderness noted to the bilateral lower quadrants Extremities:No joint swelling, pedal edema, or tenderness noted. Back: Normal inspection. No vertebral tenderness noted. No CVA tenderness noted. Neurological: Alert, oriented 3, no focal deficits. Psychiatric: normal affect, normal mood. Skin: Dry, intact, warm. Normal color. No rashes. Atorvastatin [Lipitor] 40 mg PO HS 01/04/19 [History] Escitalopram [Lexapro] 10 mg PO DAILY 01/04/19 [History] Furosemide [Lasix] 40 mg PO BID 01/04/19 [History] Gabapentin [Neurontin] 400 mg PO Q8H 01/04/19 [History] Insulin ASPART [Novolog Flexpen] 22 units SQ ACHS 01/04/19 [History] Insulin Glargine,Hum.rec.anlog [Lantus Solostar] 35 unit SQ BID 01/04/19 [History] Ipratropium/Albuterol Neb [Duoneb] 3 ml IH Q4HR PRN 01/04/19 [History] Lisinopril [Zestril] 5 mg PO DAILY 01/04/19 [History] Metoprolol [Lopressor] 25 mg PO BID 01/04/19 [History] Omeprazole [PriLOSEC] 20 mg PO DAILY 01/04/19 [History] Oxybutynin Chloride [Ditropan Xl] 10 mg PO DAILY 01/04/19 [History] Propafenone [Rhythmol] 150 mg PO Q8HR 01/04/19 [History] Rivaroxaban [Xarelto] 20 mg PO DAILY 01/04/19 [History] Budesonide/Formoterol 160/4.5 [Symbicort 160/4.5] 2 puff IH BIDR 30 Days #2 inh 01/09/19 [Rx] Doxycycline 100 mg PO Q12HR 18 Days #36 capsule 01/09/19 [Rx] Nicotine Patch [Nicoderm] 21 mg TD DAILY 30 Days #30 patch.td24 01/09/19 [Rx] Allergy/AdvReac Type Severity Reaction Status Date / Time No Known Allergies Allergy Verified 01/03/19 20:05 - Assessment and Plan (1) Sepsis Status: Acute The patient had 2 sepsis criteria on admission. Likely secondary to pneumonia and UTI. Improved. WBC normal. Continues to have intermittent tachycardia. Blood cultures from 01/04/19 are no growth to date 2 sets. SNOMED Code(s): 82493492 (2) Pneumonia Status: Suspected Chest x-ray showed a dense retrocardiac opacity. Causative organism: MRSA. Strep pneumococcal and legionella urinary antigens are negative. Sputum culture positive as stated above. The patient did have a negative procalcitonin, so unsure if this is a true active infection versus colonization. Currently on Zyvox. Qualifiers: Pneumonia type: due to methicillin-resistant Staphylococcus aureus (MRSA) Laterality: unspecified laterality Lung location: unspecified part of lung Q ualified Code(s): J15.212 - Pneumonia due to Methicillin resistant Staphylococcus aureus SNOMED Code(s): 099184694 (3) COPD exacerbation Status: Acute Management per the primary team. SNOMED Code(s): 508623601 (4) UTI (urinary tract infection) Status: Acute Asymptomatic bacteriuria versus true infection. The patient reports a discomfort with urination, but states it is not really a burning. She denies any suprapubic pain, urinary frequency, or flank pain. Causative organism: VRE. Appears uncomplicated. Currently on Zyvox. Qualifiers: Urinary tract infection type: site unspecified Hematuria presence: without hematuria Qualified Code(s): N39.0 - Urinary tract infection, site not specified SNOMED Code(s): 12827771 (5) Acute and chronic respiratory failure with hypercapnia Status: Resolved Multifactorial: COPD exacerbation plus possible pneumonia plus CHF Intubated 01/03/19. Extubated 01/05/19. Management per the primary team. SNOMED Code(s): 9366249831965 (6) Atrial fibrillation Status: Chronic Qualifiers: Atrial fibrillation type: unspecified Qualified Code(s): I48.91 - Unspecified atrial fibrillation SNOMED Code(s): 07662582 (7) Sleep apnea Status: Chronic Qualifiers: Sleep apnea type: unspecified type Qualified Code(s): G47.30 - Sleep apnea, unspecified SNOMED Code(s): 56141732 (8) Diabetes mellitus Status: Chronic Recommend aggressive glucose monitoring and control. Management per the primary team. Qualifiers: Diabetes mellitus type: type 2 Diabetes mellitus moth exterminator insulin use: with moth exterminator use Diabetes mellitus complication status: without complication Qualified Code(s): E11.9 - Type 2 diabetes mellitus without complications; Z79.4 - intermission coordinator (current) use of insulin SNOMED Code(s): 00525326 (9) Tobacco abuse Status: Chronic SNOMED Code(s): 600750890 - Recommendations Recommendations: Await blood cultures to finalize. Droplet and contact precautions per hospital policy. Discontinue Zyvox. Start Doxycycline 100 mg by mouth twice a day. Give fosfomycin 3 g by mouth 1 dose now. Duration of treatment depends on the clinical picture. It remains unclear if the MRSA in the sputum is actually contributing to the patient's clinical picture since technically she was not adequately treated until 01/07/19 and clinically she improved prior to that. However, given the patient's severe COPD and recurrent hospitalizations, we will plan to treat with oral doxycycline to complete a 21 day course. Monitor renal function and dose adjust antibiotics. Consult Discharge Plan - Plan Instructions: Heart Failure (DC), Atrial Fibrillation (DC), Urinary Tract Infection in Women (DC), Chronic Obstructive Pulmonary Disease (DC), Chronic Hypertension (DC) Referrals: Antonia Berry CNP [Non-Partnered Physician] - 01/18/19 1:40 pm (Please follow up as schedule...) Shamar Celis MD [Partnered Physician] - (web requested 01/09/2019) NONE,PCP [Primary Care Provider] - Prescriptions: Doxycycline 100 mg PO Q12HR 18 Days #36 capsule Nicotine Patch [Nicoderm] 21 mg TD DAILY 30 Days #30 patch.td24 Budesonide/Formoterol 160/4.5 [Symbicort 160/4.5] 2 puff IH BIDR 30 Days #2 inh - Attending Attestation I have personally performed a face to face evaluation on this patient. I have reviewed and agree with the care plan. History and Exam by me shows: Assessment and plan: 1.Sepsis 2.Pneumonia causative organism not clear likely MRSA true infection versus colonization? 3.COPD 4. Urinary tract infection 5.Acute on chronic respiratory failure 6.Morbid obesity Recommendations Await blood cultures to finalize. Droplet and contact precautions per hospital policy. Discontinue Zyvox. Start Doxycycline 100 mg by mouth twice a day. Give fosfomycin 3 g by mouth 1 dose now. Duration of treatment depends on the clinical picture. It remains unclear if the MRSA in the sputum is actually contributing to the patient's clinical picture since technically she was not adequately treated until 01/07/19 and clinically she improved prior to that. However, given the patient's severe COPD and recurrent hospitalizations, we will plan to treat with oral doxycycline to complete a 21 day course. Monitor renal function and dose adjust antibiotics.
[2019-01-08] MEDS ORDERED: *HR* LORazepam 1 MG TABLET PO PRN (10:25)
[2019-01-08] MEDS: Budesonide/Formoterol 160/4.5 1 PUFF INH IH SCH ×2 (10:58→23:25)
[2019-01-08] MEDS ORDERED: Fosfomycin Tromethamine 3 GM Packet PO ONE (14:15)
[2019-01-08] MEDS ORDERED: Gabapentin 400 MG CAPSULE PO SCH (14:15)
[2019-01-08] MEDS: Gabapentin 400 MG CAPSULE PO SCH ×2 (15:53→21:39)
[2019-01-08] MEDS: *HR* Rivaroxaban 10 MG TABLET PO SCH (16:48)
[2019-01-08] MEDS: Doxycycline 100 MG CAPSULE PO SCH (16:48)
[2019-01-08] MEDS ORDERED: Insulin LISPRO 300 UNITS/3 ML VIAL SQ ONE (20:51)
[2019-01-08] MEDS ORDERED: Doxycycline 100 MG CAPSULE PO SCH (21:00)
[2019-01-09] MEDS ORDERED: Acetaminophen 325 MG TABLET PO PRN (00:09)
[2019-01-09] MEDS: Ipratropium/Albuterol Neb 3 ML IH SCH ×2 (03:29→10:17)
[2019-01-09] MEDS: Doxycycline 100 MG CAPSULE PO SCH (06:57)
[2019-01-09 07:27] LABS: Basophils % 0.2 %; Immature Granulocytes % 0.3 % (0-4)
[2019-01-09 07:29] LABS: Hematocrit 32.4 % (35.3-44.9); Hemoglobin 9.2 g/dL (11.5-15.4); Lymphocytes % 19.8 %; Mean Corpuscular HGB Conc 28.4 g/dL (31.6-35.5); Mean Corpuscular Hemoglobin 24.8 pg (28.0-33.3); Mean Corpuscular Volume 87.3 fL (83.0-100.0); Mean Platelet Volume 10.8 fL (9.4-12.4); Monocytes % 6.3 %; Platelet Count 292 K/mcL (140-400); Red Blood Count 3.71 M/mcL (3.82-4.97); Red Cell Distribution Width 18.7 % (11.5-14.5); Segmented Neutrophils % 70.8 %; White Blood Count 11.4 K/mcL (4.3-11.1)
[2019-01-09 07:30] LABS: Anisocytosis 1+ (Not Present); Eosinophils # 0.3 K/mcL (0.0-0.6); Eosinophils % 2.6 %; Hypochromasia Present (Not Present); Lymphocytes # 2.3 K/mcL (0.6-4.6); Monocytes # 0.7 K/mcL (0.0-1.3); Neutrophils # 8.1 K/mcL (1.6-8.9); Platelet Estimate Normal (Normal)
[2019-01-09 07:45] LABS: BUN/Creatinine Ratio 32 (6-26); Blood Urea Nitrogen 19 mg/dL (8-23); Calcium 8.7 mg/dL (8.6-10.3); Carbon Dioxide 38 mEq/L (23-29); Chloride 98 mEq/L (98-107); Glucose 215 mg/dL (70-105); Magnesium 1.6 mg/dL (1.6-2.6); Osmolality,Calculated 301 (280-300); Phosphorous 2.8 mg/dL (2.7-4.5); Potassium 3.9 mEq/L (3.5-5.1); Sodium 141 mEq/L (136-145); eGFR For African Americans > 60 (> 60); eGFR For Non-African Americans > 60 (> 60)
[2019-01-09] MEDS: Insulin DETEMIR 100 UNIT/ML X5UNITS SQ SCH (08:53)
[2019-01-09] MEDS: Gabapentin 400 MG CAPSULE PO SCH (08:53)
[2019-01-09] MEDS: Insulin LISPRO 300 UNITS/3 ML VIAL SQ SCH ×4 (08:53→11:52)
[2019-01-09] MEDS: predniSONE 20 MG TABLET PO SCH (08:54)
[2019-01-09] MEDS: Nicotine 21 MG PATCH.TD24 TD SCH (08:54)
[2019-01-09] MEDS ORDERED: Furosemide 20 MG TABLET PO SCH (09:00)
--- NOTE | 2019-01-09 09:22 | Infectious Disease Progress No ---
ID Progress Note Date of Encounter: 01/09/19 Time of Encounter: 09:20 - Subjective Subjective: Agency and examined. No acute events overnight. Patient states her shortness of breath appears to be back to baseline. Reports a small productive cough. Denies fevers, chills, rigors. Denies chest pain. Denies nausea, vomiting, diarrhea, or constipation. States her stools are a little bit loose, but she had not had a bowel movement for several days. Denies oral thrush or skin rashes. States her appetite is good. Denies abdominal pain. States she is voiding without difficulty since having her Barajas catheter removed. - Objective CBC & Chem 7: 01/09/19 06:53 01/09/19 06:53 - Exam Vitals: Temp Pulse Resp BP Pulse Ox 97.3 F L 91 19 105/65 100 01/09/19 07:48 01/09/19 07:48 01/09/19 07:48 01/09/19 07:48 01/09/19 07:48 Exam: Head: Atraumatic, normal inspection, normocephalic. Eye: EOMI, PERRLA, no scleral icterus noted. ENT: Mucous membranes moist. No odontogenic infection noted. Neck: Normal inspection, no meningismus. Respiratory: Diminished throughout. No rales, respiratory distress, rhonchi, or wheezes noted. Currently on BiPAP. Cardiovascular: Regular rate and rhythm, S1 and S2 audible. No murmurs, rubs, or gallops. GI: Soft, obese, normal bowel sounds. Tenderness noted to the bilateral lower quadrants Extremities:No joint swelling, pedal edema, or tenderness noted. Back: Normal inspection. No vertebral tenderness noted. No CVA tenderness noted. Neurological: Alert, oriented 3, no focal deficits. Psychiatric: normal affect, normal mood. Skin: Dry, intact, warm. Normal color. No rashes. - Assessment and Plan (1) Sepsis Current Visit: Yes Status: Acute The patient had 2 sepsis criteria on admission. Likely secondary to pneumonia and UTI. Improved. WBC normal. Continues to have intermittent tachycardia. Blood cultures from 01/04/19 are no growth to date 2 sets. SNOMED Code(s): 57766181 (2) Pneumonia Current Visit: Yes Status: Acute Chest x-ray showed a dense retrocardiac opacity. Causative organism: MRSA. Strep pneumococcal and legionella urinary antigens are negative. Sputum culture positive as stated above. The patient did have a negative procalcitonin, so unsure if this is a true active infection versus colonization. Currently on by mouth doxycycline. Qualifiers: Pneumonia type: due to methicillin-resistant Staphylococcus aureus (MRSA) Laterality: unspecified laterality Lung location: unspecified part of lung Qualified Code(s): J15.212 - Pneumonia due to Methicillin resistant Staphylococcus aureus SNOMED Code(s): 590971134 (3) COPD exacerbation Current Visit: Yes Status: Acute Management per the primary team. SNOMED Code(s): 507925673 (4) UTI (urinary tract infection) Current Visit: Yes Status: Acute Asymptomatic bacteriuria versus true infection. The patient reports a discomfort with urination, but states it is not really a burning. She denies any suprapubic pain, urinary frequency, or flank pain. Causative organism: VRE. Appears uncomplicated. Barajas catheter removed. Received 1 dose of oral fosfomycin. Qualifiers: Urinary tract infection type: site unspecified Hematuria presence: without hematuria Qualified Code(s): N39.0 - Urinary tract infection, site not specified SNOMED Code(s): 26673012 (5) Acute and chronic respiratory failure with hypercapnia Current Visit: Yes Status: Resolved Multifactorial: COPD exacerbation plus possible pneumonia plus CHF Intubated 01/03/19. Extubated 01/05/19. Management per the primary team. SNOMED Code(s): 9432884657256 (6) Atrial fibrillation Current Visit: Yes Status: Chronic Qualifiers: Atrial fibrillation type: unspecified Qualified Code(s): I48.91 - Unspecified atrial fibrillation SNOMED Code(s): 29907702 (7) Sleep apnea Current Visit: Yes Status: Chronic Qualifiers: Sleep apnea type: unspecified type Qualified Code(s): G47.30 - Sleep apnea, unspecified SNOMED Code(s): 76505353 (8) Diabetes mellitus Current Visit: No Status: Chronic Recommend aggressive glucose monitoring and control. Management per the primary team. Qualifiers: Diabetes mellitus type: type 2 Diabetes mellitus snf insulin use: with marine oil terminal superintendent use Diabetes mellitus complication status: without complication Qualified Code(s): E11.9 - Type 2 diabetes mellitus without complications; Z79.4 - lobsterman (current) use of insulin SNOMED Code(s): 65385507 (9) Tobacco abuse Current Visit: No Status: Chronic SNOMED Code(s): 735928133 - Recommendations Recommendations: Await blood cultures to finalize. Droplet and contact precautions per hospital policy. Continue Doxycycline 100 mg by mouth twice a day. Duration of treatment depends on the clinical picture. It remains unclear if t he MRSA in the sputum is actually contributing to the patient's clinical picture since technically she was not adequately treated until 01/07/19 and clinically she improved prior to that. However, given the patient's severe COPD and recurrent /hospitalizations, we will plan to treat with oral doxycycline to complete a 21 day course. Treat through 01/27/19. Monitor renal function and dose adjust antibiotics. Consult Discharge Plan - Plan Referrals: NONE,PCP [Primary Care Provider] -
[2019-01-09] MEDS: Budesonide/Formoterol 160/4.5 1 PUFF INH IH SCH (10:17)
--- NOTE | 2019-01-09 10:26 | Discharge Summary ---
Date of Encounter: 01/09/19 Time of Encounter: 10:23 - Discharge Diagnosis (1) Acute and chronic respiratory failure with hypercapnia Priority: Primary Status: Resolved (2) COPD exacerbation Priority: Primary Status: Acute (3) CHF (congestive heart failure) Priority: Primary Status: Chronic Qualifiers: Heart failure type: unspecified Heart failure chronicity: chronic Qualified Code(s): I50.9 - Heart failure, unspecified (4) HTN (hypertension) Priority: Secondary Status: Chronic Qualifiers: Hypertension type: unspecified Qualified Code(s): I10 - Essential (primary) hypertension (5) HLD (hyperlipidemia) Priority: Secondary Status: Chronic Qualifiers: Hyperlipidemia type: unspecified Qualified Code(s): E78.5 - Hyperlipidemia, unspecified (6) Diabetes mellitus Priority: Secondary Status: Chronic Qualifiers: Diabetes mellitus type: type 2 Diabetes mellitus director long term care insulin use: with director long term care use Diabetes mellitus complication status: without complication Qualified Code(s): E11.9 - Type 2 diabetes mellitus without complications; Z79.4 - jail (current) use of insulin (7) Sleep apnea Priority: Secondary Status: Chronic Qualifiers: Sleep apnea type: unspecified type Qualified Code(s): G47.30 - Sleep apnea, unspecified (8) Atrial fibrillation Priority: Secondary Status: Chronic Qualifiers: Atrial fibrillation type: unspecified Qualified Code(s): I48.91 - Unspecified atrial fibrillation (9) UTI (urinary tract infection) Priority: Secondary Status: Acute Qualifiers: Urinary tract infection type: site unspecified Hematuria presence: without hematuria Qualified Code(s): N39.0 - Urinary tract infection, site not specified (10) Pneumonia Priority: Primary Status: Suspected Qualifiers: Pneumonia type: due to methicillin-resistant Staphylococcus aureus (MRSA) Laterality: unspecified laterality Lung location: unspecified part of lung Qualified Code(s): J15.212 - Pneumonia due to Methicillin resistant Staphylococcus aureus Hospital course: Ms. Beltran is a 63 year old female past medical history of hypertension, hyperlipidemia, type 2 diabetes, COPD, CHF, and sleep apnea. She initially presented to [facility] on 01/03/19. She arrived to that facility via EMS with complaints of shortness of breath. Of note patient was recently discharged from [place] on 12/29/18 after admission for similar complaints. Patient reported to the [facility] providers that she started smoking again and began having increasing shortness of breath. Patient was admitted to the hospital due to acute hypoxemic and hypercapnic respiratory failure, requiring intubation, possible pneumonia. Patient with manage with broad- spectrum IV antibiotics. She was successfully extubated on 01/05/19. Sputum culture grew MRSA and urine culture: VRE. ID consulted for antibiotics management. patient received one dose of fosmomycin and ID recommended to complete a 21 days treatment course with doxycycline. Patient is hemodynamically stable to be discharged home on oral antibiotics and steroids taper. It was offered to the patient PT/OT evaluation but she refused because she was to be discharged home. - Time Spent with Patient Total time spent providing and/or coordinating discharge services: Time spent: Greater than 30 minutes (34) - Discharge Medications Prescriptions: New Doxycycline 100 mg PO Q12HR 18 Days #36 capsule Nicotine Patch [Nicoderm] 21 mg TD DAILY 30 Days #30 patch.td24 Budesonide/Formoterol 160/4.5 [Symbicort 160/4.5] 2 puff IH BIDR 30 Days #2 inh Continued Metoprolol [Lopressor] 25 mg PO BID Rivaroxaban [Xarelto] 20 mg PO DAILY Gabapentin [Neurontin] 400 mg PO Q8H Propafenone [Rhythmol] 150 mg PO Q8HR Oxybutynin Chloride [Ditropan Xl] 10 mg PO DAILY Omeprazole [PriLOSEC] 20 mg PO DAILY Insulin ASPART [Novolog Flexpen] 22 units SQ ACHS Lisinopril [Zestril] 5 mg PO DAILY Insulin Glargine,Hum.rec.anlog [Lantus Solostar] 35 unit SQ BID Ipratropium/Albuterol Neb [Duoneb] 3 ml IH Q4HR PRN PRN Reason: Shortness Of Breath Furosemide [Lasix] 40 mg PO BID Escitalopram [Lexapro] 10 mg PO DAILY Atorvastatin [Lipitor] 40 mg PO HS Home Medications: Atorvastatin [Lipitor] 40 mg PO HS 01/04/19 [History] Escitalopram [Lexapro] 10 mg PO DAILY 01/04/19 [History] Furosemide [Lasix] 40 mg PO BID 01/04/19 [History] Gabapentin [Neurontin] 400 mg PO Q8H 01/04/19 [History] Insulin ASPART [Novolog Flexpen] 22 units SQ ACHS 01/04/19 [History] Insulin Glargine,Hum.rec.anlog [Lantus Solostar] 35 unit SQ BID 01/04/19 [History] Ipratropium/Albuterol Neb [Duoneb] 3 ml IH Q4HR PRN 01/04/19 [History] Lisinopril [Zestril] 5 mg PO DAILY 01/04/19 [History] Metoprolol [Lopressor] 25 mg PO BID 01/04/19 [History] Omeprazole [PriLOSEC] 20 mg PO DAILY 01/04/19 [History] Oxybutynin Chloride [Ditropan Xl] 10 mg PO DAILY 01/04/19 [History] Propafenone [Rhythmol] 150 mg PO Q8HR 01/04/19 [History] Rivaroxaban [Xarelto] 20 mg PO DAILY 01/04/19 [History] Budesonide/Formoterol 160/4.5 [Symbicort 160/4.5] 2 puff IH BIDR 30 Days #2 inh 01/09/19 [Rx] Doxycycline 100 mg PO Q12HR 18 Days #36 capsule 01/09/19 [Rx] Nicotine Patch [Nicoderm] 21 mg TD DAILY 30 Days #30 patch.td24 01/09/19 [Rx] Allergies/Adverse Reactions: Allergy/AdvReac Type Severity Reaction Status Date / Time No Known Allergies Allergy Verified 01/03/19 20:05 Date of admission: 01/03/19 19:41 Primary care physician: PCP NONE Consults: 01/03/19 23:08 Consult to Nurse Navigator [CONS] Routine Comment: 01/03/19 23:12 Consult to Critical Care [CONS] Routine Consulting Provider: [facility] [place] Reason for Consult: Ventilator Management, COPD exacerbation Call Completed: Yes 01/07/19 11:23 Consult to Infectious Diseases [CONS] Routine Consulting Provider: Infectious Disease [facility] Reason for Consult: VRE in the urine Call Completed: No - Constitutional Vitals: Temp Pulse Resp BP Pulse Ox 97.3 F L 91 19 105/65 100 01/09/19 07:48 01/09/19 07:48 01/09/19 07:48 01/09/19 07:48 01/09/19 07:48 General appearance: Present: no acute distress Exam: Vitals: Reviewed General: Alert and oriented x4. In no distress Cardiovascular: irregularly, irregular, normal S1 & S2, no rubs, murmurs or gallops. Lungs: CTA b/l, no wheezes or crackles. Abdomen: Soft, non-tender, no rigidity. NABS in all 4 quadrants Extremities: trace edema in the lower ext b/l. Neurological: No focal neurological deficits Rest of the physical exam is non contributory - Patient Status Disposition: Home Health Service Condition: Fair Functional capacity at discharge: independent ambulation Overall status at discharge: patient is progressing back to baseline - Discharge Instructions Follow Up With: NONE,PCP [Primary Care Provider] - - Diet and Activity Activity: wear oxygen at all times (4 litters ) Diet: advance to your usual diet, diabetic diet, low salt diet
--- NOTE | 2019-01-09 10:36 | Physician Discharge Referral ---
Home Health/Hosp Referral Info Transfer to: Home Health - Diagnosis (1) Acute and chronic respiratory failure with hypercapnia Priority: Primary Status: Resolved (2) COPD exacerbation Priority: Primary Status: Acute (3) CHF (congestive heart failure) Priority: Secondary Status: Chronic (4) HTN (hypertension) Priority: Secondary Status: Chronic (5) HLD (hyperlipidemia) Priority: Secondary Status: Chronic (6) Diabetes mellitus Priority: Secondary Status: Chronic (7) Sleep apnea Priority: Secondary Status: Chronic (8) Atrial fibrillation Priority: Secondary Status: Chronic (9) UTI (urinary tract infection) Priority: Secondary Status: Acute (10) Pneumonia Priority: Secondary Status: Suspected - Respiratory Orders Oxygen / L per min Smoking Cessation: Smoking cessation has been advised. For more information, call the [employer] Quit Line at 4-560-BNNK-NOW. - Diet/Nutrition Diet/Nutrition Orders: Regular - Activity Activity Orders: Ambulate - Services Needed Following services are medically necessary services: Nursing, Home Health Aide, Physical Therapy, Occupational Therapy - Transfer Medications Prescriptions: Doxycycline 100 mg PO Q12HR 18 Days #36 capsule Nicotine Patch [Nicoderm] 21 mg TD DAILY 30 Days #30 patch.td24 Budesonide/Formoterol 160/4.5 [Symbicort 160/4.5] 2 puff IH BIDR 30 Days #2 inh Home Medications: Atorvastatin [Lipitor] 40 mg PO HS 01/04/19 [History] Escitalopram [Lexapro] 10 mg PO DAILY 01/04/19 [History] Furosemide [Lasix] 40 mg PO BID 01/04/19 [History] Gabapentin [Neurontin] 400 mg PO Q8H 01/04/19 [History] Insulin ASPART [Novolog Flexpen] 22 units SQ ACHS 01/04/19 [History] Insulin Glargine,Hum.rec.anlog [Lantus Solostar] 35 unit SQ BID 01/04/19 [History] Ipratropium/Albuterol Neb [Duoneb] 3 ml IH Q4HR PRN 01/04/19 [History] Lisinopril [Zestril] 5 mg PO DAILY 01/04/19 [History] Metoprolol [Lopressor] 25 mg PO BID 01/04/19 [History] Omeprazole [PriLOSEC] 20 mg PO DAILY 01/04/19 [History] Oxybutynin Chloride [Ditropan Xl] 10 mg PO DAILY 01/04/19 [History] Propafenone [Rhythmol] 150 mg PO Q8HR 01/04/19 [History] Rivaroxaban [Xarelto] 20 mg PO DAILY 01/04/19 [History] Budesonide/Formoterol 160/4.5 [Symbicort 160/4.5] 2 puff IH BIDR 30 Days #2 inh 01/09/19 [Rx] Doxycycline 100 mg PO Q12HR 18 Days #36 capsule 01/09/19 [Rx] Nicotine Patch [Nicoderm] 21 mg TD DAILY 30 Days #30 patch.td24 01/09/19 [Rx] Allergies/Adverse Reactions: Allergy/AdvReac Type Severity Reaction Status Date / Time No Known Allergies Allergy Verified 01/03/19 20:05 Certification: Further, I certify that my clinical findings support that this patient is homebound (i.e. absences from home require considerable and taxing effort and are for medical reasons or restorationism services or infrequently or short duration when for other reasons) because: Homebound Reason: Patient requires assistance of a person or device to safely leave home Attestation: My signature below is to certify that this patient is under my care and that I, or nurse practitioner, or a physician's vet assistant working with me, has a [id number] encounter with this patient.
== END 2019-01-09 13:56 | disposition home health service (06) | DRG 871 ==
LOC: SUATTDRO 19:41 → ICNU 19:41 → 2ANU 01-06 16:31
PROVIDERS: ADMIT Internal Medicine Nephrology; ATTEND Internal Medicine